=== PATIENT | male | born 1945 | race Caucasian/White ===

== ENCOUNTER 2025-06-17 20:29 | Inpatient (IN) | payer OTHER, SELFPAY ==
[2025-06-17 16:05] VITALS: BP 96/65
[2025-06-17 16:40] LABS: Hematocrit 40.2 % (39.0-52.0); Hemoglobin 13.5 g/dL (13.0-18.0); Mean Corp Hgb Conc. 33.6 g/dL (33.0-37.0); Mean Corpuscular Volume 91.6 fL (80.0-94.0); Nucleated Red Blood Cells % 0 % (-); Platelet Count 445 10^3/uL (130-400); Red Cell Dist. Width 13.1 % (11.5-14.5)
--- NOTE | 2025-06-17 16:51 | ED.GENMED ---
History of Present Illness
General
Chief Complaint: Breathing Problem
Source: patient
Exam Limitations: none
Time Seen by Provider: 06/17/25 16:51
Nursing documentation reviewed up to this point in time: agreed with
History of Present Illness
History of Present Illness:
80-year-old male with history of no significant past medical history presents for left-sided chest pain. He went to his PCP today for this chest pain which he says started 1 week ago as he was carrying during a golf game. He then played golf 4
days ago and felt fine and then played softball 2 days ago and had a brief episode of dizziness and balance issues that passed and has had none since. He states his left side hurts when he lays on that side and makes him cough. He does not cough
when sitting upright or laying flat or on the other side. He denies fever or chills. Denies N/V/D/C. Denies feeling short of breath but states it hurts to take a deep breath
Past History
Past History
ED Past Medical History: None
ED Past Surgical History: Orthopedic
Review of Systems
Review of Systems
Allergies reviewed?: Yes
Constitutional: Denies fever or chills
Respiratory: Reports cough; Denies trouble breathing
Cardiac: Reports chest pain
ABD/GI: Denies abdominal pain, nausea or vomiting
Musculoskeletal: Reports no symptoms
Skin: Reports no symptoms
Neurological: Reports no symptoms
Phy Exam
Physical Exam
Physical Exam:
GENERAL: No acute distress. A&Ox3.
CONSTITUTIONAL: Afebrile.
EYES: clear, conjunctivae normal
ENMT: moist mucus membranes, Pharynx nl
RESPIRATORY: Regular respirations, nonlabored, lungs clear.
CARDIOVASCULAR: Regular rate and rhythm, no murmurs, no rubs.
GI: Soft, nontender, normal BS
MUSCULOSKELETAL: Moves with ease. Well perfused.
SKIN: Warm, dry, pink
PSYCH: Normal mood and affect. Well kept, interactive and appropriate
NEUROLOGIC: Awake, alert and oriented. No focal neurological deficits
Scores
Heart Failure Risk
Heart Failure Risk Score: Not Applicable
Course
Orders/Labs/Results
Orders:
Orders
06/17/25 Breakfast
Regular
At Your Request: Full Participation
06/17/25 16:19
EKG [Electrocardiogram (*1)] Urgent
Reason for Study: Chest Pain
EKG- Treatment ONCE
06/17/25 16:30
CMP [Comprehensive Metabolic Panel] Urgent
Complete Blood Count/With Diff Urgent
NT-proBNP Urgent
Troponin I Urgent
06/17/25 17:47
CT Chest/abd/pel W Iv Cont Urgent
Comment:
Reason For Exam: left sided chest pain
06/17/25 19:34
Doxycycline [Vibramycin] 100 mg PO NOW STA
06/17/25 19:35
CefTRIAXone [Rocephin] 1,000 mg IV NOW STA
06/17/25 19:42
Sterile Water [Sterile Water For Injection] 10 ml .ROUTE .STK-MED ONE
06/17/25 19:59
Admit/Transfer Patient As Directed
Co-Sign Provider:
Level of Care: Inpatient admission
Assign to:: Medical/Surgical
Physician / Group: Htay
Diagnosis: Pleural Effusion
Reason for Hospitalization: IV abx, thoracentesis
Expected length of stay greater than two midnights?: Yes
ELOS- Estimated Length of Stay in days: 3
I certify the patient meets the requirements for IP care: Yes
06/17/25 20:01
Code Status As Directed
Resuscitation Status: Full Code
PRN Pain Medication Management As Directed
May give lesser potent ordered pain med per pt: Yes
preference::
Protocol:: Medication orders for pain may be administered in a
manner that supports deferring to patient preference
when the pt is:
- Requesting an ordered lesser potent pain medication.
Least to most potent pain medications are defined
as: acetaminophen < NSAID < tramadol < opioids
(morphine, oxycodone, hydromorphone).
- Requesting a lesser dose of the same medication IF
ORDERED.
- Requesting a less intrusive route of administration
if both routes are prescribed by the provider (PO <
IV).
06/17/25 20:41
Acetaminophen [Tylenol] 650 mg PO Q4HPRN PRN
Ketorolac [Toradol] 10 mg IV Q6HPRN PRN
06/17/25 20:41
IR[facility] CONSULT Routine
Consulting Provider: Kulwinder Champagne
Was physician already notified: Yes
Procedure being ordered, including laterality if applicable: Left Thoracentesis
Acknowledgement that appropriate orders are entered: Yes
PULMONARY CONSULT Routine
Consulting Provider: Anusha Barakat
Was physician already notified: Yes
Acid Fast Culture & Smear Routine
TERESA Source: Pleural Fluid
Specimen Description:
Comment: post procedure
Body Fluid Amylase Routine
Fluid Source: Pleural
Body Fluid Cell Count Routine
What is the Body Fluid: pleural fluid
Comment: post procedure
Body Fluid Glucose Routine
Fluid Source: Pleural
Body Fluid LDH Routine
Fluid Source: Pleural
Body Fluid Protein Routine
Fluid Source: Pleural
Body Fluid Triglycerides Routine
Fluid Source: Pleural
Body Fluid pH Routine
Fluid Source: Pleural
Fluid Culture with Gram Stain Routine
TERESA Source: Pleural Fluid
Specimen Description:
Comment: post procedure
Activity As Directed
Activity Level: Out of Bed-Early Mobility
With Assistance
I&O [Intake/ Output] As Directed
Frequency: q12h
Vital Signs As Directed
Frequency: Per unit guidelines
Weight As Directed
Frequency: Daily
IRAD Cytology Routine
Source: Pleural Fluid, Left
Clinical Impression: Left pleural effusion
Rx Incentive Spirometry [RESP] Routine
Frequency: q1h while awake
DX Deep Vein Thrombosis Video Routine
06/18/25 06:53
Basic Metabolic Panel IN AM
Complete Blood Count/No Diff IN AM
LDH IN AM
Total Protein IN AM
06/18/25 08:00
Doxycycline [Vibramycin] 100 mg PO Q12
06/18/25 18:00
Enoxaparin Sodium [Lovenox] 40 mg SC QPM
06/18/25 20:00
CefTRIAXone [Rocephin] 1,000 mg IV Q24H
Abnormal Lab Results
06/17/25
16:30
WBC 12.5 H 10^3/uL
(4.8-10.8)
RBC 4.39 L 10^6/uL
(4.70-6.10)
Plt Count 445 H 10^3/uL
(130-400)
Abs Immat Gran (auto) 0.1 H 10^3/uL
(0-0.05)
Absolute Neuts (auto) 9.7 H 10^3/uL
(1.4-6.5)
Absolute Monos (auto) 1.2 H 10^3/uL
(0.1-0.6)
Neutrophils % 77.1 H %
(42.2-75.2)
Lymphocytes % 11.4 L %
(20.5-51.1)
Monocytes % 9.5 H %
(1.7-9.3)
BUN 23 H mg/dl
(9-20)
Glucose 123 H mg/dl
(70-99)
Calcium 10.3 H mg/dl
(8.4-10.2)
06/17/25 16:30
06/17/25 16:30
Vital Signs
Initial and Last Documented VS:
Initial Vital Signs
Temp Pulse Resp BP Pulse Ox
98.4 F 86 20 96/65 94
06/17/25 16:05 06/17/25 16:05 06/17/25 16:05 06/17/25 16:05 06/17/25 16:05
Last Documented Vital Signs
Temp Pulse Resp BP Pulse Ox
99.6 F 89 20 126/70 92
06/19/25 07:50 06/19/25 07:50 06/19/25 07:50 06/19/25 07:50 06/19/25 07:50
Motion Picture Camera Operator consulted with Physician
Motion Picture Camera Operator consulted with physician?: Yes
Name of Physician Consulted: Luis A
MDM/Problems Addressed
Differential Diagnosis Includes:
Pneumonia, pleural effusion, empyema
MDM/Problems Addressed:
80-year-old male with history of no significant past medical history presents for left-sided chest pain. He went to his PCP today for this chest pain which he says started 1 week ago as he was carrying during a golf game. He then played golf 4
days ago and felt fine and then played softball 2 days ago and had a brief episode of dizziness and balance issues that passed and has had none since. He states his left side hurts when he lays on that side and makes him cough. He does not cough
when sitting upright or laying flat or on the other side. He denies fever or chills. Denies N/V/D/C. Denies feeling short of breath but states it hurts to take a deep breath
CBC: WBC 12.5
No hypoxemia
CMP with no clinically significant abnormality
Troponin WNL
BNP WNL
CT abd/pelvis/chest with IV contrast radiology report read: IMPRESSION:
1. Small to moderate partially loculated left pleural effusion with associated confluent pleural-based left lower lobe consolidation, likely rounded atelectasis with or without a superimposed component of pneumonia.
2. Small 5 mm right lower lobe pulmonary nodule, likely benign. If the patient is considered high risk, an optional follow-up noncontrast CT chest can be obtained in 12 months. The [facility] Pulmonary Nodule Advisory Board will be notified.
3. Probable right-sided hydrocele, partially visualized.
7:[address] scan and case reviewed and discussed with Dr. Gunn who examined pt
Plan: Admit: Loculated Pleural Effusion r/o empyema. IV antibiotics, pumonary eval
Hospitalist notified of admission
*Pulse Oximetry
SaO2: 94
Oxygen Mode of Delivery: Room air
Patient hypoxic: no
*Critical Care Note
Total Time (30-74mins, 75-104mins- exclusive of procedures): Not Applicable
ED Attending Note
-
Portions of this chart may have been created with voice recognition software.� Occasional wrong word or��sound alike� substitutions may have occurred due to the inherent limitations of voice recognition software.
Discharge Plan
Departure
Patient Disposition: Admit
Date of Disposition: 06/17/25
Time of Disposition: 19:36
Admit to: Med/Surg
Presentation/result/management discussed w/ accepting MD/DO: Hospitalist
Patient with high blood pressure during this ER visit?: No
Condition: Fair
Discharge Problem:
Loculated pleural effusion
Interventions
Interventions:
*Risk Screen - Suicide Last Done: 06/17/25 16:05
*General Assessment Last Done: 06/17/25 20:37
*Neglect/Abuse Screening Last Done: 06/17/25 16:05
*ED COVID-19 Vaccine History Last Done: 06/17/25 16:05
*ED Influenza Vaccine History Last Done: 06/17/25 16:05
[facility] Fall Risk Assessment Tool Last Done: 06/17/25 17:41
*Nursing Disposition Last Done: 06/17/25 20:37
ED- Cardiac Assessment Last Done: 06/17/25 17:42
ED- Pulmonary Assessment Last Done: 06/17/25 17:42
Discharge Date and Time
Discharge Date/Time: 06/17/25 20:38
[2025-06-17 16:54] LABS: ALT (SGPT) 19 U/L (0-50); AST (SGOT) 22 U/L (17-59); Albumin 3.6 g/dl (3.5-5.0); Alkaline Phosphatase 81 U/L (38-126); Blood Urea Nitrogen 23 mg/dl (9-20); Calcium 10.3 mg/dl (8.4-10.2); Carbon Dioxide 28 mmol/L (22-30); Chloride 106 mmol/L (98-107); Glucose 123 mg/dl (70-99); Potassium 4.6 mmol/L (3.5-5.1); Sodium 136 mmol/L (135-145); Total Protein 7.0 g/dl (6.3-8.2); eGFR > 60.00
[2025-06-17 17:13] LABS: Troponin I < 0.012 ng/ml
[2025-06-17 17:19] VITALS: BMI 22.3
[2025-06-17 17:21] VITALS: BP 151/74
[2025-06-17 18:00] VITALS: BP 138/71
--- NOTE | 2025-06-17 19:39 | W.PN.UPDATE ---
Update Note
Progress Note Update
This note serves as an addendum to the H&P by general assignment reporter Germán DIAZ
HPI�
80M No significant PMHX, not on any Meds pw difficulty breathing and CP when he lays down.
- evaluated by PCP and had CXR done which showed moderate left pleural effusion.
- he was told to come to ED for CT chest/abdomen
- Low grade T 99.9 at home
- Elevated WCC
Denied cough and sputum production
No recent travel
Denied known recent tick bite
No recent Covid or Flu
Relevant VS
Temp Pulse Resp BP Pulse Ox
98.4 F 80 23 138/71 95
06/17/25 16:05 06/17/25 19:30 06/17/25 19:30 06/17/25 18:00 06/17/25 19:30
PE
Gen: NAD, not toxic
HEENT: anicteric
Neck: supple
Lungs:Decreased AE at Lt base
Cor:RRR S1 S2
Abdomen:�Benign abdomen
SKIVER MACHINE OPERATOR: NFND
MS:no edema
Relevant Data�
06/17/25
16:30
WBC 12.5 H
Hgb 13.5
Plt Count 445 H
Creatinine 0.8
eGFR > 60.00
Glucose 123 H
Calcium 10.3 H
Troponin I < 0.012
[id number] Pept 441
EKG report
NORMAL SINUS RHYTHM
RIGHT BUNDLE BRANCH BLOCK
T WAVE ABNORMALITY, CONSIDER INFERIOR ISCHEMIA
ABNORMAL ECG
NO PREVIOUS ECGS AVAILABLE
Confirmed by ARMANDO YBARRA MD ([id number]) on 06/17/2025 5:41:55 PM
06/17/25 CT Chest/abd/pel W Iv Cont: Indication: Chest pain.
1. Small to moderate partially loculated left pleural effusion
Associated confluent pleural-based left lower lobe consolidation, likely rounded atelectasis with or without a superimposed component of pneumonia.
2. Small 5 mm right lower lobe pulmonary nodule, likely benign.
If the patient is considered high risk, an optional follow-up noncontrast CT chest can be obtained in 12 months.
The [facility] Pulmonary Nodule Advisory Board will be notified.
3. Probable right-sided hydrocele, partially visualized.
NO prior hospitalist admission:
ASSESSMENT & PLAN
Probably symptomatic small /moderate partially loculated L pleural effusion DX: parapneumonic vs malignant
Associated confluent pleural-based left lower lobe consolidation DDX: rounded atelectasis with or without a superimposed component of pneumonia.
Pleuritic quality CP on Lt side - pain with deep breathing
Similar pleuritic vs muscle strain likje pain on R lower chest 2 months ago
No recent travel
Denied known recent tick bite
No recent Covid or Flu
- Empiric IV CFTZ and PO Doxycycline
- IV Toradol PRN for pleurisy
- Incentive spirometry
- IR consult for Dxtic +/_ Rxtic L thoracentesis ( appropriate labs are ordered)
- Pul consult
DVT Px: LMWH
Full code
IP MS
[2025-06-17] MEDS: VIBRAMYCIN 100 MG PO (19:50)
[2025-06-17] MEDS: ROCEPHIN 1000 MG IV (19:50)
[2025-06-17 19:51] VITALS: BP 158/80
--- NOTE | 2025-06-17 20:06 | HPS.HSE ---
Family Physician
-
Family Physician: KAREN MINER PA-C
Chief Complaint
-
Left sided chest pain
History of Present Illness
Patient is a 80 y/o male without significant past medical history who presents with left sided chest pain. Patient described the pain as a dull ache from the lower ribs down his left side. He reports pain is worsen lying down. He reports lying
down triggers increased cough. He notes sharp pain with cough and deep inspiration. He denies shortness of breath. He reports low grade temp of 99.9F this morning.
Medical History
Past Medical History
Past Medical History: Reports Other
Additional Past Medical History:
Peripheral Neuropathy
Past Surgical History: Reports Other
Additional Past Surgical History:
Left Great Toe Amputation
Left Thumb and Right Ring Finger Tendon Repair
Tonsillectomy
Cataracts
Social History
Tobacco: Non-smoker
Alcohol: None
Family History
Family History: Not pertinent
Allergies / Home Medications
Allergies reflects when Allergies were last updated in [employer].
Home Medications with original date entered in [employer]
Allergy/Medication List:
Allergies
Allergy/AdvReac Type Severity Reaction Status Date / Time
No Known Allergies Allergy Verified 06/17/25 16:12
Home Medications
No Meds [No Current Medications] 06/17/25
Review of Systems
-
History Source: Patient
A 12 point ROS was completed and negative except as noted: Yes
Constitutional: Denies Fever or Chills
Respiratory: Reports Cough and Trouble Breathing (Related to inability to take a deep breath)
Cardiac: Denies Palpitations
Abdomen/GI: Denies Abdominal Pain, Nausea, Vomiting, Diarrhea or Constipated
Physical Exam
Vital Signs
Vital Signs
Temp Pulse Resp BP Pulse Ox
98.4 F 80 23 138/71 95
12/05/25 16:05 06/17/25 19:30 06/17/25 19:30 06/17/25 18:00 06/17/25 19:30
Physical Exam
General: Comfortable and Conversant
HEENT: Anicteric and Moist mucous membranes
Respiratory: Non Labored Respirations and Decreased Breath Sounds (Left base); No Rales
Cardiac: S1/S2 and Regular Rhythm; No Tachycardia
GI: Soft and Non Distended
Rectal: Deferred by Provider
Musculoskeletal: No Clubbing, No Cyanosis and No Edema
Skin: Warm and Dry
Neuro: Awake, Alert, Oriented and Nonfocal/grossly intact
Psych: Calm
Laboratory Results
-
06/17/25 16:30
06/17/25 16:30
Laboratory Results
Total Bilirubin 0.5 mg/dl (0.2-1.3) 06/17/25 16:30
AST 22 U/L (17-59) 06/17/25 16:30
ALT 19 U/L (0-50) 06/17/25 16:30
Alkaline Phosphatase 81 U/L (38-126) 06/17/25 16:30
Troponin I < 0.012 ng/ml 06/17/25 16:[address]:
Small to moderate partially loculated left pleural effusion with associated confluent pleural-based left lower lobe consolidation, likely rounded atelectasis with or without a superimposed component of pneumonia.
Data Reviewed
-
CT Scan: Report Reviewed by me
Lab Data: Labs Reviewed by me
Impression/Plan
-
Pleurisy secondary to Left Pleural Effusion, suspect parapneumonic effusion (more likely) vs empyema (less likely)
-Consult Pulmonary
-Consult IR for thoracentesis
-Continue ceftriaxone and doxycycline
-Encourage use of incentive spirometer
DVT proph: Lovenox
Code Status: Full Code
[2025-06-17 20:51] VITALS: BP 179/81
[2025-06-17 20:52] VITALS: BMI 22.0
--- NOTE | 2025-06-17 21:00 | PTCARENOTE ---
pt arrived to floor from ED via stretcher and ambulated to bed with a steady gait. Pt aox3, oriented to room, call fernandez within reach. Food provided. Slight headache and intermittent pain in L rib cage with coughing, no complaints otherwise. Will
review chart and follow plan of care.
[2025-06-17] MEDS: TYLENOL 650 MG PO (21:30)
[2025-06-17 23:10] VITALS: BP 103/53
[2025-06-18 06:02] VITALS: BMI 21.7
[2025-06-18 08:16] VITALS: BP 135/78
[2025-06-18] MEDS: VIBRAMYCIN 100 MG PO ×2 (08:49→19:53)
[2025-06-18 09:53] LABS: Hematocrit 41.9 % (39.0-52.0); Hemoglobin 14.0 g/dL (13.0-18.0); Mean Corp Hgb Conc. 33.4 g/dL (33.0-37.0); Mean Corpuscular Volume 90.3 fL (80.0-94.0); Platelet Count 425 10^3/uL (130-400); Red Cell Dist. Width 13.2 % (11.5-14.5)
[2025-06-18 10:37] LABS: Blood Urea Nitrogen 20 mg/dl (9-20); Calcium 10.0 mg/dl (8.4-10.2); Carbon Dioxide 26 mmol/L (22-30); Chloride 105 mmol/L (98-107); Estimated Creatinine Clearance 85 ml/min; Glucose 103 mg/dl (70-99); LDH 215 U/L (120-246); Potassium 4.9 mmol/L (3.5-5.1); Sodium 137 mmol/L (135-145); Total Protein 6.8 g/dl (6.3-8.2); eGFR > 60.00
--- NOTE | 2025-06-18 10:52 | W.PN.HOSP.TC ---
Today's Communication/Plan
-
Pulm eval
Assessment / Plan
Assessment / Plan
Physical exam:
General: Well Developed, Well Nourished and No Apparent Distress
HEENT: Normocephalic, Atraumatic and Moist Mucous Membranes
Respiratory: Decreased breath sounds in left base; Negative Wheezes, Rales or Rhonchi
Cardiac: Regular Rhythm and S1/S2
GI: Soft, Nontender and Nondistended
Musculoskeletal: No Clubbing, No Cyanosis and No Edema
Neuro: Awake, Alert and Oriented, no neurological deficit
Psych: Calm
A/P:
Pleurisy probably secondary to Left Pleural Effusion
-Consult Pulmonary
-Consult IR for thoracentesis--> if weekend needs to be emergent otherwise on Friday or outpatient but waiting for pulm input.
-Continue ceftriaxone and doxycycline
-Encourage use of incentive spirometer
DVT proph: Lovenox
Code Status: Full Code
Total time spent on today's encounter was 35 minutes which included time spent in counseling the patient/family regarding diagnosis and treatment plan as listed above, goals of care, and symptom management. Case was discussed with nursing staff,
specialists, and care coordinators/case management. All labs and imaging personally reviewed by me. Remainder the time spent in detailed review of previous records, lab data, imaging, and other medical provider documentation.
Anticipated Discharge: 24 - 48 hours
Subjective/Interval History
-
Date of Service: June 18, 2025
Patient c/o pleuritic chest discomfort, afebrile.
Objective Data
-
Labs:
Laboratory Results
06/18/25
06:53
WBC 12.1 H
Hgb 14.0
Hct 41.9
Plt Count 425 H
Sodium 137
Potassium 4.9
Chloride 105
Carbon Dioxide 26
BUN 20
Creatinine 0.8
Glucose 103 H
Calcium 10.0
Vital Signs:
Vital Signs
Temp Pulse Resp BP Pulse Ox
98.3 F 77 18 135/78 98
06/18/25 08:16 06/18/25 08:16 06/18/25 08:16 06/18/25 08:16 06/18/25 08:16
--- NOTE | 2025-06-18 12:26 | CON.PUL ---
Consultation
Consultation Request
Date/Time Consultation Requested: 06/18/25
Date/Time Consultation Performed: 06/18/25
Performing Provider: Yuval
Reason for Consultation: Effusion
Medical History
-
History of Present Illness:
Patient is a 80-year-old male with no significant past medical history presenting with left sided chest pain. Patient described the pain as a dull ache from the lower ribs down his left side. He reports pain is worsened lying down. He reports
lying down triggers increases cough. He notes sharp pain with cough and deep inspiration. He denies shortness of breath. He reports low grade temp of 99.9F this morning.
Several weeks prior, he noted similar complaints on the right-hand side.
Denies any prior known history of lung disease, lifelong non-smoker. Denies family history of lung disease.
Underwent CT demonstrating loculated pleural effusion on the left, he is started on IV antibiotics for presumed pneumonia.
Past Medical History
Past Medical History: Other (see list below)
Social History
Tobacco: Non-smoker
Alcohol: None
Drug: None
Allergies / Home Medications
Allergies
Allergy/AdvReac Type Severity Reaction Status Date / Time
No Known Allergies Allergy Verified 06/17/25 16:12
Home Medications
�Medication �Instructions �Recorded �Confirmed �Last Taken �Type
No Meds [No Current Medications] 06/17/25 06/17/25 Unknown History
Review of Systems
-
History Source: Patient
All other systems: Negative unless noted
Vitals / Labs / Diagnostic Testing
Vital Signs
Temp Pulse Resp BP Pulse Ox
98.3 F 77 18 135/78 98
06/18/25 08:16 06/18/25 08:16 06/18/25 08:16 06/18/25 08:16 06/18/25 08:16
Lab Data
06/18/25 06:53
06/18/25 06:53
Diagnostic Testing:
Physical Exam
-
HEENT: Normocephalic, Anicteric and Moist Mucous Membranes
Cardiovascular: S1/S2 and Regular Rhythm
Respiratory: Clear and Non-Labored Respirations
GI: Soft, Non Distended and Non Tender
Neurology: Awake, Alert, Oriented and No Motor Deficits
Skin: Warm, Dry and Good Color
General: Comfortable and Other (NAD)
Assessment
-
Patient is a 80-year-old male with no significant past medical history presenting with left sided chest pain. Patient described the pain as a dull ache from the lower ribs down his left side. He reports pain is worsened lying down. He reports
lying down triggers increases cough. He notes sharp pain with cough and deep inspiration. He denies shortness of breath. He reports low grade temp of 99.9F this morning.
Several weeks prior, he noted similar complaints on the right-hand side. Denies any prior known history of lung disease, lifelong non-smoker. Denies family history of lung disease. Underwent CT demonstrating loculated pleural effusion on the left,
he is started on IV antibiotics for presumed pneumonia. We are consulted for evaluation.
Left-sided loculated effusion on CT
Chronic cough
Left side pleurisy
Low-grade temp
Leukocytosis, mild
Conditions present prior to admission
No past history
Plan
No oxygen was needed on admission, currently saturating >90% on RA
Denies prior known history of lung disease, lifelong non-smoker
CXR/CT obtained indicating loculated left-sided pleural effusion, he had right sided pain several weeks prior
The fluid amount may be too small to sample via thoracentesis
Will obtain a chest ultrasound to confirm
IR has been consulted, but unsure if they are able to pursue diagnostic tap
No prior imaging for review
He is considered overall low risk for malignancy
He has very vague complaints that are suggestive of infection
He did have a mild leukocytosis, low-grade temperature but no true fever
I would agree with empiric antibiotics as this is most likely
I will check strep antigen, Legionella antigen, MRSA, sputum culture
Unclear if effusion is related to heart failure, no prior cardiac testing available for review
Will obtain new echo for results
If workup thus far has been negative, can assess for discharge planning with short-term outpatient follow-up
He has been asking if he can go home
He understands the plan if the workup thus far is negative
Can transition to p.o. course of antibiotics with plan to repeat CT imaging as an outpatient
Will arrange outpatient pulmonary evaluation in our office for PFTs and 6MWT
Reviewed with patient
Can assess for discharge planning if workup negative
Diagnostic Data
Chest X-Ray:
CT Scan: CHEST -1. Small to moderate partially loculated left pleural effusion with associated confluent pleural-based left lower lobe consolidation, likely rounded atelectasis with or without a superimposed component of pneumonia.
2. Small 5 mm right lower lobe pulmonary nodule, likely benign. If the patient is considered high risk, an optional follow-up noncontrast CT chest can be obtained in 12 months. The [facility] Pulmonary Nodule Advisory Board will be notified.
3. Probable right-sided hydrocele, partially visualized.
Echo:
PFT's:
Reports and relevant images were personally reviewed.
Total time spent on this consultation __55__ minutes which includes review of history, physical exam, medications, laboratory data, personal review of imaging, extensive review of outpatient records, discussion with care team and respiratory therapy.
[2025-06-18] MEDS: TORADOL 10 MG IV (15:13)
[2025-06-18 15:43] VITALS: BP 137/70
[2025-06-18] MEDS: LOVENOX 40 MG SC (16:36)
--- NOTE | 2025-06-18 16:54 | CM ---
Alert awake oriented patient who lives with his Lashell who lives in a 2 story home with 0 step to enter and 13 steps to bed and bathroom. He is independent in driving and in all activities of daily living.He was offered VN he declined
need.Advanced directive pkg given.
No VN hx / No SNF history
Pharmacy Iv[facility] Infante
PCP DR Shireen Amezquita
PLAN Home Declined VN
--- NOTE | 2025-06-18 17:30 | PTCARENOTE ---
PT became very restless at end of my shift. he kept getting up going out to nurses station, wanting to go home. I reasurred him that the doctors want him to stay to get treatment. Urine for legionella and strep ordered and sent, MRSA nasal swab
sent, sputum cup at bed side and instructed on what to do.
[2025-06-18 19:35] VITALS: BP 164/76
[2025-06-18] MEDS: TYLENOL 650 MG PO (19:50)
[2025-06-18] MEDS: STERILE WATER FOR INJECTION 10 ML IV (19:51)
[2025-06-18] MEDS: ROCEPHIN 1000 MG IV (19:51)
[2025-06-18 23:43] VITALS: BP 150/70
[2025-06-19 00:03] LABS: Urine Character Cloudy (Clear)
[2025-06-19 00:45] LABS: Urine Squamous Cell 16-20 /LPF (Few)
[2025-06-19 00:48] LABS: Urine Red Blood Cell 26-30 /HPF (0-2); Urine White Cell 30-40 /HPF (0-5)
[2025-06-19 06:55] VITALS: BMI 21.7
[2025-06-19 07:50] VITALS: BP 126/70
[2025-06-19 08:08] LABS: Hematocrit 40.5 % (39.0-52.0); Hemoglobin 13.3 g/dL (13.0-18.0); Mean Corp Hgb Conc. 32.8 g/dL (33.0-37.0); Mean Corpuscular Volume 90.6 fL (80.0-94.0); Nucleated Red Blood Cells % 0 % (-); Platelet Count 465 10^3/uL (130-400); Red Cell Dist. Width 13.3 % (11.5-14.5)
[2025-06-19 08:28] LABS: Blood Urea Nitrogen 26 mg/dl (9-20); Calcium 10.5 mg/dl (8.4-10.2); Carbon Dioxide 26 mmol/L (22-30); Chloride 103 mmol/L (98-107); Estimated Creatinine Clearance 68 ml/min; Glucose 133 mg/dl (70-99); Potassium 4.8 mmol/L (3.5-5.1); Sodium 135 mmol/L (135-145); eGFR > 60.00
[2025-06-19] MEDS: TORADOL 10 MG IV ×2 (08:35→15:26)
[2025-06-19] MEDS: VIBRAMYCIN 100 MG PO ×2 (08:36→20:31)
--- NOTE | 2025-06-19 08:41 | W.PN.HOSP.TC ---
Today's Communication/Plan
-
Blood cultures. Chest ultrasound. Thoracentesis. Antibiotic. Pulmonary reeval
Assessment / Plan
Assessment / Plan
Physical exam:
General: Acutely ill. Nontoxic appearance
HEENT: Normocephalic, Atraumatic and Moist Mucous Membranes
Respiratory: Decreased breath sounds in left base; Negative Wheezes, Rales or Rhonchi
Cardiac: Regular Rhythm and S1/S2
GI: Soft, Nontender and Nondistended
Musculoskeletal: No Clubbing, No Cyanosis and No Edema
Neuro: Awake, Alert and Oriented, no neurological deficit
Psych: Calm
A/P:
Left pleural effusion:
Chest ultrasound today
Continue antibiotics
Plan for thoracentesis tomorrow if enough fluid
Plan for echocardiogram as well
Pulmonary consult appreciated
Pneumonia:
Continue Rocephin and Doxy
Strep and Legionella negative
Sputum culture pending
Leukocytosis:
Worsening today the clinical status remains stable
Follow-up trend of WBC
Obtain blood cultures today as well although already on antibiotic
Abnormal UA:
On antibiotic
Urine culture pending
DVT proph: Lovenox
Code Status: Full Code
Total time spent on today's encounter was 52 minutes which included time spent in counseling the patient/family regarding diagnosis and treatment plan as listed above, goals of care, and symptom management. Case was discussed with nursing staff,
specialists, and care coordinators/case management. All labs and imaging personally reviewed by me. Remainder the time spent in detailed review of previous records, lab data, imaging, and other medical provider documentation.
Anticipated Discharge: 24 - 48 hours
Subjective/Interval History
-
Date of Service: June 19, 2025
Patient continues to have pleuritic chest discomfort. No worsening shortness of breath. Afebrile
Objective Data
-
Labs:
Laboratory Results
06/19/25
07:50
WBC 21.7 H
Hgb 13.3
Hct 40.5
Plt Count 465 H
Sodium 135
Potassium 4.8
Chloride 103
Carbon Dioxide 26
BUN 26 H
Creatinine 1.0
Glucose 133 H
Calcium 10.5 H
Vital Signs:
Vital Signs
Temp Pulse Resp BP Pulse Ox
99.6 F 89 20 126/70 92
06/19/25 07:50 06/19/25 07:50 06/19/25 07:50 06/19/25 07:50 06/19/25 07:50
I&O
06/18/25 06/19/25 06/20/25
06:59 06:59 06:59
Intake Total 970 / 970
Balance 970 / 970
--- NOTE | 2025-06-19 11:48 | W.PN.PUL3 ---
Today's Communication / Plan
-
Feeling more lethargic today, WBC rising
Sputum culture still pending, urinalysis suggesting also UTI, agree with addition of blood cultures
Continue IV antibiotics
Chest ultrasound suggesting effusion is too small to attempt thoracentesis, would cancel IR consult
Await final culture results--if negative, may consider obtaining CT abdomen pelvis for source
Assessment
-
Patient is a 80-year-old male with no significant past medical history presenting with left sided chest pain. Patient described the pain as a dull ache from the lower ribs down his left side. He reports pain is worsened lying down. He reports
lying down triggers increases cough. He notes sharp pain with cough and deep inspiration. He denies shortness of breath. He reports low grade temp of 99.9F this morning.
Several weeks prior, he noted similar complaints on the right-hand side. Denies any prior known history of lung disease, lifelong non-smoker. Denies family history of lung disease. Underwent CT demonstrating loculated pleural effusion on the left,
he is started on IV antibiotics for presumed pneumonia. We are consulted for evaluation.
Left-sided loculated effusion on CT
Chronic cough
Left side pleurisy
Low-grade temp
Leukocytosis, rising
Possible UTI, UA with 2+ blood/30-40wbc,many bacteria
Conditions present prior to admission
No past history
Plan
No oxygen was needed on admission, currently saturating >90% on RA
Denies prior known history of lung disease, lifelong non-smoker
CXR/CT obtained indicating loculated left-sided pleural effusion, he had right sided pain several weeks prior
The fluid amount may be too small to sample via thoracentesis
Will obtain a chest ultrasound to confirm--this appears too small to tap
IR has been consulted, would cancel
No prior imaging for review
He is considered overall low risk for malignancy
He has very vague complaints that are suggestive of infection
He did have a mild leukocytosis, low-grade temperature but no true fever--WBC rising today
I would agree with empiric antibiotics as this is most likely
I will check strep antigen, Legionella antigen, MRSA, sputum culture--pending
UA now also suggesting UTI
Agree with new blood cultures as well
Unclear if effusion is related to heart failure, no prior cardiac testing available for review
Will obtain new echo for results
If workup thus far has been negative, can assess for discharge planning with short-term outpatient follow-up
He has been asking if he can go home
He understands the plan if the workup thus far is negative
Can transition to p.o. course of antibiotics with plan to repeat CT imaging as an outpatient
Will arrange outpatient pulmonary evaluation in our office for PFTs and 6MWT
Reviewed with patient
Updated patient and at bedside
Diagnostic Data
Chest X-Ray:
CT Scan: CHEST -1. Small to moderate partially loculated left pleural effusion with associated confluent pleural-based left lower lobe consolidation, likely rounded atelectasis with or without a superimposed component of pneumonia.
2. Small 5 mm right lower lobe pulmonary nodule, likely benign. If the patient is considered high risk, an optional follow-up noncontrast CT chest can be obtained in 12 months. The [facility] Pulmonary Nodule Advisory Board will be notified.
3. Probable right-sided hydrocele, partially visualized.
Echo:
PFT's:
Reports and relevant images were personally reviewed.
Total time spent on this consultation __50__ minutes which includes review of history, physical exam, medications, laboratory data, personal review of imaging, extensive review of outpatient records, discussion with care team and respiratory therapy.
Subjective Data
-
Date of Service:
Date of Service: June 19, 2025
Chief Complaint: Pulmonary Follow Up
Subjective:
Feels worse today than yesterday
Remained stable on room air
Objective Data
Data Reviewed
Vital Signs / I&O / Oxygen:
Vital Signs
Temp Pulse Resp BP Pulse Ox
99.6 F 89 20 126/70 92
06/19/25 07:50 06/19/25 07:50 06/19/25 07:50 06/19/25 07:50 06/19/25 07:50
Intake and Output
06/18/25 06/19/25 06/20/25
06:59 06:59 06:59
Intake Total 970 / 970
Balance 970 / 970
SaO2 92
Physical Exam
General: Comfortable and Other (NAD)
HEENT: Normocephalic, Anicteric and Moist Mucous Membranes
Cardiovascular: S1-S2 and Regular Rhythm
Respiratory: Clear and Non-Labored Respirations
GI: Soft, Non Distended and Non Tender
Neurology: Awake, Alert, Oriented and No Motor Deficits
Skin: Warm, Dry and Good Color
Labs/Micro/Reports
Lab Data
06/19/25 07:50
06/19/25 07:50
Microbiology
06/18/25 20:22 Urine Legionella Urinary Antigen - Final
Negative for Legionella pneumophila Serogroup 1 antigen.
A negative result does not rule out the possiblity of
Legionella infection due to other serogroups or species of
Legionella. Clinical correlation is recommended.
06/18/25 20:22 Urine Streptococcus pneumoniae Antigen (M - Final
Negative for Streptococcus pneumoniae antigen.
A negative result does not exclude infection with
Streptococcus pneumoniae. Clinical correlation is
recommended.
06/18/25 20:22 Sputum Gram Stain - Preliminary
[2025-06-19 16:32] VITALS: BP 132/65
[2025-06-19] MEDS: LOVENOX 40 MG SC (17:23)
[2025-06-19] MEDS: TYLENOL 650 MG PO (17:24)
[2025-06-19] MEDS: ROCEPHIN 1000 MG IV (20:31)
[2025-06-19] MEDS: STERILE WATER FOR INJECTION 10 ML IV (20:33)
[2025-06-19 23:00] VITALS: BP 137/66
[2025-06-20 05:12] VITALS: BMI 21.8
[2025-06-20 05:52] LABS: Hematocrit 39.4 % (39.0-52.0); Hemoglobin 13.3 g/dL (13.0-18.0); Mean Corp Hgb Conc. 33.8 g/dL (33.0-37.0); Mean Corpuscular Volume 90.8 fL (80.0-94.0); Nucleated Red Blood Cells % 0 % (-); Platelet Count 422 10^3/uL (130-400); Red Cell Dist. Width 13.0 % (11.5-14.5)
[2025-06-20 06:15] LABS: Blood Urea Nitrogen 31 mg/dl (9-20); Calcium 10.6 mg/dl (8.4-10.2); Carbon Dioxide 24 mmol/L (22-30); Chloride 105 mmol/L (98-107); Estimated Creatinine Clearance 76 ml/min; Glucose 126 mg/dl (70-99); Potassium 4.4 mmol/L (3.5-5.1); Sodium 135 mmol/L (135-145); eGFR > 60.00
[2025-06-20 07:28] VITALS: BP 116/75
[2025-06-20] MEDS: VIBRAMYCIN 100 MG PO (07:28)
--- NOTE | 2025-06-20 08:50 | W.PN.PUL.V3 ---
Today's Communication / Plan
-
Finite course of antibiotics.
Not enough fluid for thoracentesis..
Echocardiogram pending.
Stable for proposed discharge with outpatient pulmonary/radiographic follow-up
Outpatient pulmonary follow-up
Assessment
-
Patient is a 80-year-old male with no significant past medical history presenting with left sided chest pain. Patient described the pain as a dull ache from the lower ribs down his left side. He reports pain is worsened lying down. He reports
lying down triggers increases cough. He notes sharp pain with cough and deep inspiration. He denies shortness of breath. He reports low grade temp of 99.9F this morning.
Several weeks prior, he noted similar complaints on the right-hand side. Denies any prior known history of lung disease, lifelong non-smoker. Denies family history of lung disease. Underwent CT demonstrating loculated pleural effusion on the left,
he is started on IV antibiotics for presumed pneumonia. We are consulted for evaluation.
Left-sided loculated effusion on CT
Chronic cough
Left side pleurisy
Low-grade temp
Leukocytosis, rising
Possible UTI, UA with 2+ blood/30-40wbc,many bacteria
Conditions present prior to admission:
No past history
Plan
Respiratory status slowly improving-lifelong nonsmoker, and no previous lung disease
Supplemental oxygen as needed-currently on room air.
Incentive spirometry.
Loculated pleural [id number]-[id number]-bex enough fluid to tap.
Monitor pleural fluid and it increases in size or patient becomes symptomatic and clinical scenario might dictate thoracentesis
Check cultures.
Urine culture pending.
Blood cultures Pending
Urine culture 06/18/25-no growth.
Sputum culture-usual respiratory raul.
MRSA screen negative.
Urine Legionella and streptococcal pneumonia antigen negative
Empiric antibiotics-finite course-currently on ceftriaxone and doxycycline
Echocardiogram pending.
DVT prophylaxis-on Lovenox
Will arrange outpatient pulmonary evaluation in our office for PFTs and 6MWT
Diagnostic Data
Chest X-Ray:
CT Scan: CHEST -1. Small to moderate partially loculated left pleural effusion with associated confluent pleural-based left lower lobe consolidation, likely rounded atelectasis with or without a superimposed component of pneumonia.
2. Small 5 mm right lower lobe pulmonary nodule, likely benign. If the patient is considered high risk, an optional follow-up noncontrast CT chest can be obtained in 12 months. The [facility] Pulmonary Nodule Advisory Board will be notified.
3. Probable right-sided hydrocele, partially visualized.
.
Subjective Data
-
Date of Service:
Date of Service: June 20, 2025
Chief Complaint: Pulmonary Follow Up
Subjective:
Feels better, no complaints short of breath, chest pain, complains of having to urinate frequently. No abdominal pain
Review of Systems
General: Other ( per HPI)
Objective Data
Data Reviewed
Vital Signs / I&O:
Vital Signs
Temp Pulse Resp BP Pulse Ox
99.0 F 98 17 116/75 97
06/20/25 07:28 06/20/25 07:28 06/20/25 07:28 06/20/25 07:28 06/20/25 07:28
Intake and Output
06/19/25 06/20/25 06/21/25
06:59 06:59 06:59
Intake Total 970 / 970 480 / 480
Balance 970 / 970 480 / 480
SaO2: 97
Physical Exam
General: Respiratory Distress (n), Comfortable and Other (NAD)
HEENT: Normocephalic, Anicteric and Moist Mucous Membranes
Cardiovascular: Regular Rhythm
Respiratory: Clear, Wheeze (n), Crackles (n), Rhonchi (n), Non-Labored Respirations, Accessory Resp Muscle Use (n) and Stridor (n)
GI: Soft, Non Distended and Non Tender
Neurology: Awake, Alert and No Motor Deficits
Skin: Warm, Dry, Good Color, Cyanosis (n), Jaundice (n) and Rash (n)
Labs/Micro/Reports
Lab Data
06/20/25 05:29
06/20/25 05:29
Microbiology
06/18/25 20:22 Nose MRSA Screen - Final
No Methicillin Resistant Staphylococcus aureus isolated.
06/18/25 20:22 Urine Legionella Urinary Antigen - Final
Negative for Legionella pneumophila Serogroup 1 antigen.
A negative result does not rule out the possiblity of
Legionella infection due to other serogroups or species of
Legionella. Clinical correlation is recommended.
06/18/25 20:22 Urine Streptococcus pneumoniae Antigen (M - Final
Negative for Streptococcus pneumoniae antigen.
A negative result does not exclude infection with
Streptococcus pneumoniae. Clinical correlation is
recommended.
06/18/25 20:22 Sputum Gram Stain - Preliminary
--- NOTE | 2025-06-20 13:05 | W.PN.HOSP.TC ---
Today's Communication/Plan
-
Follow-up echo
Assessment / Plan
Assessment / Plan
Physical exam:
General: Acutely ill. Nontoxic appearance
HEENT: Normocephalic, Atraumatic and Moist Mucous Membranes
Respiratory: Decreased breath sounds in left base; Negative Wheezes, Rales or Rhonchi
Cardiac: Regular Rhythm and S1/S2
GI: Soft, Nontender and Nondistended
Musculoskeletal: No Clubbing, No Cyanosis and No Edema
Neuro: Awake, Alert and Oriented, no neurological deficit
Psych: Calm
Symptomatic left pleural effusion -small to moderate partially loculated on CT. Suspect parapneumonic effusion given confluent left lower lobe consolidation, pneumonia.
Chest ultrasound reviewed, not enough fluid for thoracentesis.
Symptomatically. Patient feels improved.
Echocardiogram ordered by Dr. Umana.
Community-acquired pneumonia
Continue Rocephin and Doxy, day 4 of antibiotics.
Strep and Legionella negative
Sputum culture pending
Blood cultures negative so far.
Polyuria -suspect related to excessive fluid intake as well as presumed BPH.
No retention on bladder ultrasound today. Start Flomax. Recommend outpatient urology follow-up. Cut down on fluids.
DVT proph: Lovenox
Code Status: Full Code
Dispo -possible discharge later today if cleared by pulmonary. Follow-up echocardiogram results.
Anticipated Discharge: Today
Subjective/Interval History
-
Date of Service: June 20, 2025
Patient seen and examined. States his chest pain has improved. Complaining of frequent urination.
Objective Data
-
Labs:
Laboratory Results
06/20/25
05:29
WBC 18.8 H
Hgb 13.3
Hct 39.4
Plt Count 422 H
Sodium 135
Potassium 4.4
Chloride 105
Carbon Dioxide 24
BUN 31 H
Creatinine 0.9
Glucose 126 H
Calcium 10.6 H
Vital Signs:
Vital Signs
Temp Pulse Resp BP Pulse Ox
99.0 F 98 17 116/75 97
06/20/25 07:28 06/20/25 07:28 06/20/25 07:28 06/20/25 07:28 06/20/25 08:50
I&O
06/19/25 06/20/25 06/21/25
06:59 06:59 06:59
Intake Total 970 / 970 480 / 480
Balance 970 / 970 480 / 480
Review of Systems
-
History Source: Patient
All other systems: Reviewed and negative
[2025-06-20] MEDS: FLOMAX 0.4 MG PO (14:33)
[2025-06-20 14:59] VITALS: BP 140/64
[2025-06-20] MEDS: LOVENOX 40 MG SC (17:04)
[2025-06-20] MEDS: UNASYN IV (18:13)
[2025-06-20 23:00] VITALS: BP 133/60
[2025-06-21] MEDS: UNASYN IV ×4 (01:00→18:06)
[2025-06-21 05:14] VITALS: BMI 21.9
[2025-06-21 05:45] LABS: Hematocrit 35.9 % (39.0-52.0); Hemoglobin 11.7 g/dL (13.0-18.0); Mean Corp Hgb Conc. 32.6 g/dL (33.0-37.0); Mean Corpuscular Volume 90.2 fL (80.0-94.0); Nucleated Red Blood Cells % 0 % (-); Platelet Count 412 10^3/uL (130-400); Red Cell Dist. Width 13.2 % (11.5-14.5)
[2025-06-21 07:38] VITALS: BP 138/67
[2025-06-21] MEDS: FLOMAX 0.4 MG PO (07:41)
--- NOTE | 2025-06-21 08:51 | W.PN.HOSP.TC ---
Today's Communication/Plan
-
Chest x-ray
Discharge
Assessment / Plan
Assessment / Plan
Gen-AAOx3, NAD
HEENT-NC, AT, anicteric, clear oral mm
Neck-supple
CV-reg, no M, +S1/S2
Lungs-clear B/L
Abd-soft, NT, ND
Ext-no edema
Musculoskeletal-no cyanosis, clubbing
Skin-warm and dry
Neuro-grossly non-focal
Psych-calm, cooperative
Symptomatic left pleural effusion -small to moderate partially loculated on CT. Suspect parapneumonic effusion given confluent left lower lobe consolidation, pneumonia.
Chest ultrasound reviewed, not enough fluid for thoracentesis.
Symptomatically. Patient feels improved.
Echocardiogram shows LVEF 62%, mild AR, mild concentric LVH, mildly dilated aortic root, mild to moderate TR.
Community-acquired pneumonia
Antibiotics changed to Unasyn given left pleural effusion, cannot differentiate between parapneumonic versus empyema. Clinically and pain is probably less likely. Fevers resolved.
Strep and Legionella negative
Sputum culture pending
Blood cultures negative so far.
Anticipate discharge on Augmentin.
Polyuria -suspect related to excessive fluid intake as well as presumed BPH.
No retention on bladder ultrasound today. Continue Flomax. Recommend outpatient urology follow-up. Cut down on fluids.
DVT proph: Lovenox
Code Status: Full Code
Dispo -probable discharge today pending chest x-ray report. Outpatient follow-up PCP, pulmonary, urology.
Anticipated Discharge: Today
Subjective/Interval History
-
Date of Service: June 21, 2025
Patient seen and examined. Complaining of lack of stamina. Denies dyspnea on exertion.
Objective Data
-
Labs:
Laboratory Results
06/21/25
05:20
WBC 14.9 H
Hgb 11.7 L
Hct 35.9 L
Plt Count 412 H
Vital Signs:
Vital Signs
Temp Pulse Resp BP Pulse Ox
98.1 F 84 17 138/67 95
06/21/25 07:38 06/21/25 07:38 06/21/25 07:38 06/21/25 07:38 06/21/25 07:38
I&O
06/20/25 06/21/25 06/22/25
06:59 06:59 06:59
Intake Total 480 / 480 1320 / 1320
Balance 480 / 480 1320 / 1320
Review of Systems
-
History Source: Patient
All other systems: Reviewed and negative
--- NOTE | 2025-06-21 11:04 | W.PN.PUL.V3 ---
Addendum entered and electronically signed by Chadwick Alcazar MD 06/21/25 14:32:
Patient had chest x-ray ordered by hospitalist.
Chest x-ray reviewed with moderate probable loculated left pleural effusion.
Reviewed with hospitalist.
Interventional radiology consultation for possible thoracentesis if there is enough fluid
Original Note:
Today's Communication / Plan
-
Increase activity
Wean FiO2
Stable for proposed discharge
Outpatient pulmonary evaluation
Assessment
-
Patient is a 80-year-old male with no significant past medical history presenting with left sided chest pain. Patient described the pain as a dull ache from the lower ribs down his left side. He reports pain is worsened lying down. He reports
lying down triggers increases cough. He notes sharp pain with cough and deep inspiration. He denies shortness of breath. He reports low grade temp of 99.9F this morning.
Several weeks prior, he noted similar complaints on the right-hand side. Denies any prior known history of lung disease, lifelong non-smoker. Denies family history of lung disease. Underwent CT demonstrating loculated pleural effusion on the left,
he is started on IV antibiotics for presumed pneumonia. We are consulted for evaluation.
Left-sided loculated effusion on CT
Chronic cough
Left side pleurisy
Low-grade temp
Leukocytosis, rising
Possible UTI, UA with 2+ blood/30-40wbc,many bacteria
Conditions present prior to admission:
No past history
Plan
Respiratory status slowly improving-lifelong nonsmoker, and no previous lung disease
Supplemental oxygen as needed-currently on room air.
Incentive spirometry.
Loculated pleural afzulufd-amieqnvsdl-wtc enough fluid to tap.
Monitor pleural fluid and it increases in size or patient becomes symptomatic and clinical scenario might dictate thoracentesis-explained to patient that fluid may reaccumulate and if he has increased shortness of breath need to get a chest x-ray
potential reevaluation for thoracentesis
Cultures reviewed
Blood cultures negative
Urine cultures negative
Sputum culture-usual respiratory raul.
MRSA screen negative.
Urine Legionella and streptococcal pneumonia antigen negative
Empiric antibiotics-finite course-currently on ceftriaxone and doxycycline
Echocardiogram 06/20/2025-EF 62%, mild aortic regurgitation, PA systolic 37.
DVT prophylaxis-on Lovenox
Stable for proposed discharge
Will arrange outpatient pulmonary evaluation in our office for PFTs and 6MWT
Diagnostic Data
Chest X-Ray:
CT Scan: CHEST -1. Small to moderate partially loculated left pleural effusion with associated confluent pleural-based left lower lobe consolidation, likely rounded atelectasis with or without a superimposed component of pneumonia.
2. Small 5 mm right lower lobe pulmonary nodule, likely benign. If the patient is considered high risk, an optional follow-up noncontrast CT chest can be obtained in 12 months. The [facility] Pulmonary Nodule Advisory Board will be notified.
3. Probable right-sided hydrocele, partially visualized.
.
Subjective Data
-
Date of Service:
Date of Service: June 21, 2025
Chief Complaint: Pulmonary Follow Up
Subjective:
No complaints of shortness of breath, chest pain, productive cough
Review of Systems
General: Other (Per HPI)
Objective Data
Data Reviewed
Vital Signs / I&O:
Vital Signs
Temp Pulse Resp BP Pulse Ox
98.1 F 84 17 138/67 95
06/21/25 07:38 06/21/25 07:38 06/21/25 07:38 06/21/25 07:38 06/21/25 07:45
Intake and Output
06/20/25 06/21/25 06/22/25
06:59 06:59 06:59
Intake Total 480 / 480 1320 / 1320
Balance 480 / 480 1320 / 1320
SaO2: 95
Physical Exam
General: Respiratory Distress (n), Comfortable and Other (NAD)
HEENT: Normocephalic, Anicteric and Moist Mucous Membranes
Cardiovascular: Regular Rhythm
Respiratory: Clear, Wheeze (n), Crackles (n), Rhonchi (n), Non-Labored Respirations, Accessory Resp Muscle Use (n) and Stridor (n)
GI: Soft, Non Distended and Non Tender
Neurology: Awake, Alert and No Motor Deficits
Skin: Warm, Dry, Good Color, Cyanosis (n), Jaundice (n) and Rash (n)
Labs/Micro/Reports
Lab Data
06/21/25 05:20
06/20/25 05:29
Microbiology
06/18/25 20:22 Sputum Respiratory Culture - Final
Usual Respiratory Raul
06/18/25 20:22 Sputum Gram Stain - Final
06/19/25 13:38 Blood/Venous Blood Culture - Preliminary
No Growth in 24 hours- Final report to follow
06/19/25 12:37 Blood/Venous Blood Culture - Preliminary
No Growth in 24 hours- Final report to follow
06/18/25 20:22 Urine Urine Culture - Final
NO GROWTH
06/18/25 20:22 Nose MRSA Screen - Final
No Methicillin Resistant Staphylococcus aureus isolated.
06/18/25 20:22 Urine Legionella Urinary Antigen - Final
Negative for Legionella pneumophila Serogroup 1 antigen.
A negative result does not rule out the possiblity of
Legionella infection due to other serogroups or species of
Legionella. Clinical correlation is recommended.
06/18/25 20:22 Urine Streptococcus pneumoniae Antigen (M - Final
Negative for Streptococcus pneumoniae antigen.
A negative result does not exclude infection with
Streptococcus pneumoniae. Clinical correlation is
recommended.
[2025-06-21 13:31] LABS: LDH 255 U/L (120-246); Total Protein 5.7 g/dl (6.3-8.2)
[2025-06-21 14:15] VITALS: BP 127/56; BP_SYST 82
[2025-06-21 14:40] VITALS: BP 104/42
[2025-06-21 15:11] VITALS: BP 150/58
[2025-06-21 16:00] LABS: Body Fluid Second Tech DW
--- NOTE | 2025-06-21 16:59 | CM ---
CM following for discharge planning. Pt is independently ambulating in his room and the hallways. Prior CM offered VN and patient declined. He continues to decline services at this time and plans to go home with no additional needs.
Plan: CM will continue to follow to coordinate discharge planning needs. Pt for a chest xray and per MD, pt will be discharged afterwards.
[2025-06-21] MEDS: LOVENOX 40 MG SC (18:06)
[2025-06-21 23:34] VITALS: BP 133/61
[2025-06-22] MEDS: UNASYN IV ×5 (00:06→23:18)
[2025-06-22 05:42] LABS: Hematocrit 35.2 % (39.0-52.0); Hemoglobin 11.9 g/dL (13.0-18.0); Mean Corp Hgb Conc. 33.8 g/dL (33.0-37.0); Mean Corpuscular Volume 91.0 fL (80.0-94.0); Nucleated Red Blood Cells % 0 % (-); Platelet Count 413 10^3/uL (130-400); Red Cell Dist. Width 13.2 % (11.5-14.5)
[2025-06-22 06:00] VITALS: BMI 21.9
[2025-06-22 07:33] VITALS: BP 129/68
[2025-06-22] MEDS: FLOMAX 0.4 MG PO (08:18)
--- NOTE | 2025-06-22 08:33 | W.PN.HOSP.TC ---
Today's Communication/Plan
-
IR consult for chest tube
Check labs
Continue antibiotics
Assessment / Plan
Assessment / Plan
Gen-AAOx3, NAD
HEENT-NC, AT, anicteric, clear oral mm
Neck-supple
CV-reg, no M, +S1/S2
Lungs-clear B/L
Abd-soft, NT, ND
Ext-no edema
Musculoskeletal-no cyanosis, clubbing
Skin-warm and dry
Neuro-grossly non-focal
Psych-calm, cooperative
Left parapneumonic effusion versus empyema -due to complicated community-acquired pneumonia.
Chest ultrasound reviewed, not enough fluid for thoracentesis.
Symptomatically. Patient feels improved.
Echocardiogram shows LVEF 62%, mild AR, mild concentric LVH, mildly dilated aortic root, mild to moderate TR.
Chest x-ray done 06/21/shows moderate left-sided loculated pleural effusion, left lower lobe pneumonia.
Thoracentesis done 06/21 yielded 150 cc clear yellow pleural fluid. Fluid is exudative in nature, pH 6.92. Anticipate chest tube placement today by IR. Discussed with pulmonary. May be difficult to completely drain given loculations. Discussed
in detail with patient, he is agreeable to chest tube.
Community-acquired pneumonia -clinically improving with downtrending of WBC count. Fevers resolved. Continue IV Unasyn.
Strep and Legionella negative
Sputum culture usual respiratory raul.
Blood cultures negative so far.
Mild hypercalcemia -10.6. Intact PTH 34.7.
Will check TSH, PTH-RP, vitamin D levels.
Polyuria -suspect related to excessive fluid intake as well as presumed BPH.
No retention on bladder ultrasound today. Continue Flomax. Recommend outpatient urology follow-up. Cut down on fluids.
DVT proph: Lovenox
Code Status: Full Code
Anticipated Discharge: > 48 hours
Subjective/Interval History
-
Date of Service: June 22, 2025
Patient seen and examined. Denies chest pain or shortness of breath.
Objective Data
-
Labs:
Laboratory Results
06/22/25
05:29
WBC 12.9 H
Hgb 11.9 L
Hct 35.2 L
Plt Count 413 H
Vital Signs:
Vital Signs
Temp Pulse Resp BP Pulse Ox
97.3 F 79 17 129/68 94
06/22/25 07:33 06/22/25 07:33 06/22/25 07:33 06/22/25 07:33 06/22/25 07:33
I&O
06/21/25 06/22/25 06/23/25
06:59 06:59 06:59
Intake Total 1320 / 1320 840 / 840
Balance 1320 / 1320 840 / 840
Review of Systems
-
History Source: Patient
All other systems: Reviewed and negative
[2025-06-22 10:31] LABS: Vitamin D, 25-OH*** 31.3 ng/mL (30-80)
[2025-06-22 10:45] LABS: TSH 0.67 uIU/ml (0.47-4.68)
--- NOTE | 2025-06-22 10:52 | W.PN.PUL.V3 ---
Today's Communication / Plan
-
.
Wean oxygen.
Thoracentesis-exudate.
Check CT chest and consider chest tube for complete drainage of complicated parapneumonic effusion/empyema
Assessment
-
Patient is a 80-year-old male with no significant past medical history presenting with left sided chest pain. Patient described the pain as a dull ache from the lower ribs down his left side. He reports pain is worsened lying down. He reports
lying down triggers increases cough. He notes sharp pain with cough and deep inspiration. He denies shortness of breath. He reports low grade temp of 99.9F this morning.
Several weeks prior, he noted similar complaints on the right-hand side. Denies any prior known history of lung disease, lifelong non-smoker. Denies family history of lung disease. Underwent CT demonstrating loculated pleural effusion on the left,
he is started on IV antibiotics for presumed pneumonia. We are consulted for evaluation.
Left-sided loculated effusion on CT-Enlarged over 3 days
Status post thoracentesis 06/21/25--150 mL, exudate, pH 6.9, WBCs-cultures No growth.
Possible chest tube 06/22/25
Chronic cough
Left side pleurisy
Low-grade temp
Leukocytosis, rising
Possible UTI, UA with 2+ blood/30-40wbc,many bacteria
Conditions present prior to admission:
No past history
Plan
Respiratory status slowly improving-lifelong nonsmoker, and no previous lung disease
Supplemental oxygen as needed-currently on room air.
Incentive spirometry.
Loculated pleural qnpkzfqw-cfmhiwytzg-rms enough fluid to tap.
Monitor pleural fluid and it increases in size or patient becomes symptomatic and clinical scenario might dictate thoracentesis-explained to patient that fluid may reaccumulate and if he has increased shortness of breath need to get a chest x-ray
potential reevaluation for thoracentesis
Cultures reviewed
Blood cultures negative
Urine cultures negative
Sputum culture-usual respiratory raul.
Left pleural fluid-no growth
MRSA screen negative.
Urine Legionella and streptococcal pneumonia antigen negative
Empiric antibiotics-finite course-currently on ceftriaxone and doxycycline.
Chest x-ray 06/21/25 with moderate left pleural effusion.
Thoracentesis left side 06/21/25-exudate, pH 6.9, WBCs, cultures negative, cytology pending-suspect complicated parapneumonic effusion or empyema.
CT chest 06/22/25-moderate loculated pleural effusion, enlarged, moderate left lower lobe consolidation, stable 5 mm right lower lobe pleural-based nodule
Consider chest tube drainage-TPA/DNase if needed
Echocardiogram 06/20/2025-EF 62%, mild aortic regurgitation, PA systolic 37.
DVT prophylaxis-on Lovenox
Stable for proposed discharge
Will arrange outpatient pulmonary evaluation in our office for PFTs and 6MWT
Diagnostic Data
Chest X-Ray:
CT Scan: CHEST -1. Small to moderate partially loculated left pleural effusion with associated confluent pleural-based left lower lobe consolidation, likely rounded atelectasis with or without a superimposed component of pneumonia.
2. Small 5 mm right lower lobe pulmonary nodule, likely benign. If the patient is considered high risk, an optional follow-up noncontrast CT chest can be obtained in 12 months. The [facility] Pulmonary Nodule Advisory Board will be notified.
3. Probable right-sided hydrocele, partially visualized.
.
Subjective Data
-
Date of Service:
Date of Service: June 22, 2025
Chief Complaint: Pulmonary Follow Up
Subjective:
Appears angry, no complaints shortness of breath, productive cough, or abdominal pain
Review of Systems
General: Other ( per HPI)
Objective Data
Data Reviewed
Vital Signs / I&O:
Vital Signs
Temp Pulse Resp BP Pulse Ox
97.3 F 79 17 129/68 94
06/22/25 07:33 06/22/25 07:33 06/22/25 07:33 06/22/25 07:33 06/22/25 07:33
Intake and Output
06/21/25 06/22/25 06/23/25
06:59 06:59 06:59
Intake Total 1320 / 1320 840 / 840
Balance 1320 / 1320 840 / 840
SaO2: 94
Physical Exam
General: Respiratory Distress (n), Comfortable and Other (NAD)
HEENT: Normocephalic, Anicteric and Moist Mucous Membranes
Cardiovascular: Regular Rhythm
Respiratory: Clear, Wheeze (n), Crackles (n), Rhonchi (n), Non-Labored Respirations, Accessory Resp Muscle Use (n) and Stridor (n)
GI: Soft, Non Distended and Non Tender
Neurology: Awake, Alert and No Motor Deficits
Skin: Warm, Dry, Good Color, Cyanosis (n), Jaundice (n) and Rash (n)
Labs/Micro/Reports
Lab Data
06/22/25 05:29
06/20/25 05:29
Microbiology
06/21/25 14:58 Pleural Fluid Gram Stain - Preliminary
06/19/25 13:38 Blood/Venous Blood Culture - Preliminary
No Growth in 48 hours- Final report to follow
06/19/25 12:37 Blood/Venous Blood Culture - Preliminary
No Growth in 48 hours- Final report to follow
06/18/25 20:22 Sputum Respiratory Culture - Final
Usual Respiratory Raul
06/18/25 20:22 Sputum Gram Stain - Final
06/18/25 20:22 Urine Urine Culture - Final
NO GROWTH
06/18/25 20:22 Nose MRSA Screen - Final
No Methicillin Resistant Staphylococcus aureus isolated.
06/18/25 20:22 Urine Legionella Urinary Antigen - Final
Negative for Legionella pneumophila Serogroup 1 antigen.
A negative result does not rule out the possiblity of
Legionella infection due to other serogroups or species of
Legionella. Clinical correlation is recommended.
06/18/25 20:22 Urine Streptococcus pneumoniae Antigen (M - Final
Negative for Streptococcus pneumoniae antigen.
A negative result does not exclude infection with
Streptococcus pneumoniae. Clinical correlation is
recommended.
[2025-06-22 15:22] VITALS: BP 142/57
[2025-06-22 15:35] VITALS: BP 139/62; BP_SYST 82
[2025-06-22] MEDS: ATIVAN 0.5 MG IV (16:02)
[2025-06-22] MEDS: NSS (PRESERVATIVE FREE) 0.25 ML IV (16:02)
[2025-06-22 17:00] VITALS: BP 145/68; BP_SYST 79
[2025-06-22 17:50] VITALS: BP 130/70
[2025-06-22] MEDS: LOVENOX 40 MG SC (17:52)
[2025-06-22] MEDS: TORADOL 10 MG IV (19:07)
--- NOTE | 2025-06-22 19:12 | PTCARENOTE ---
Addendum entered by Ann Panda RN 06/22/25 19:17:
PRN toradol adminstered at this time. Dressing dry and intact. poc ongoing.
Original Note:
Pt received back to floor after chest tube insertion. VSS and pt not complaining of pain upon arrival to the unit. Chest tube unclamped and connected to -20 sution @1850 per order. Pt now complaianing of 10/10 pain. [employer] made aware and sw pt @bedsdie
[2025-06-22] MEDS: MORPHINE SULFATE 0.5 MG IV (23:17)
[2025-06-22 23:45] VITALS: BP 144/68
[2025-06-23 06:00] VITALS: BMI 21.5
[2025-06-23 06:02] LABS: Hematocrit 36.2 % (39.0-52.0); Hemoglobin 12.0 g/dL (13.0-18.0); Mean Corp Hgb Conc. 33.1 g/dL (33.0-37.0); Mean Corpuscular Volume 90.0 fL (80.0-94.0); Nucleated Red Blood Cells % 0 % (-); Platelet Count 439 10^3/uL (130-400); Red Cell Dist. Width 13.3 % (11.5-14.5)
[2025-06-23 06:06] LABS: ALT (SGPT) 60 U/L (0-50); AST (SGOT) 39 U/L (17-59); Albumin 2.5 g/dl (3.5-5.0); Alkaline Phosphatase 95 U/L (38-126); Blood Urea Nitrogen 21 mg/dl (9-20); Calcium 9.9 mg/dl (8.4-10.2); Carbon Dioxide 23 mmol/L (22-30); Chloride 105 mmol/L (98-107); Estimated Creatinine Clearance 85 ml/min; Glucose 113 mg/dl (70-99); Potassium 4.7 mmol/L (3.5-5.1); Sodium 133 mmol/L (135-145); Total Protein 5.3 g/dl (6.3-8.2); eGFR > 60.00
[2025-06-23] MEDS: UNASYN IV ×3 (06:10→17:38)
[2025-06-23 08:30] VITALS: BP 135/70
[2025-06-23] MEDS: FLOMAX 0.4 MG PO (09:13)
--- NOTE | 2025-06-23 10:38 | W.PN.PUL.V3 ---
Today's Communication / Plan
-
.
Wean oxygen.
Continue antibiotics.
Continue chest tube drainage.
Monitor radiographically to ensure complete clearing
Assessment
-
Patient is a 80-year-old male with no significant past medical history presenting with left sided chest pain. Patient described the pain as a dull ache from the lower ribs down his left side. He reports pain is worsened lying down. He reports
lying down triggers increases cough. He notes sharp pain with cough and deep inspiration. He denies shortness of breath. He reports low grade temp of 99.9F this morning.
Several weeks prior, he noted similar complaints on the right-hand side. Denies any prior known history of lung disease, lifelong non-smoker. Denies family history of lung disease. Underwent CT demonstrating loculated pleural effusion on the left,
he is started on IV antibiotics for presumed pneumonia. We are consulted for evaluation.
Left-sided loculated effusion on CT-Enlarged over 3 days
Status post thoracentesis 06/21/25--150 mL, exudate, pH 6.9, WBCs-cultures No growth.
Possible chest tube 06/22/25
Chronic cough
Left side pleurisy
Low-grade temp
Leukocytosis, rising
Possible UTI, UA with 2+ blood/30-40wbc,many bacteria
Conditions present prior to admission:
No past history
Plan
Respiratory status slowly improving-lifelong nonsmoker, and no previous lung disease
Supplemental oxygen as needed-currently on room air.
Incentive spirometry.
Loculated pleural wseubtxf-reiykhsaoo-cqs enough fluid to tap.
Monitor pleural fluid and it increases in size or patient becomes symptomatic and clinical scenario might dictate thoracentesis-explained to patient that fluid may reaccumulate and if he has increased shortness of breath need to get a chest x-ray
potential reevaluation for thoracentesis
Cultures reviewed
Blood cultures negative
Urine cultures negative
Sputum culture-usual respiratory raul.
Left pleural fluid-no growth
MRSA screen negative.
Urine Legionella and streptococcal pneumonia antigen negative
Empiric antibiotics-finite course-currently on ceftriaxone and doxycycline.
Chest x-ray 06/21/25 with moderate left pleural effusion.
Thoracentesis left side 06/21/25-exudate, pH 6.9, WBCs, cultures negative, cytology pending-suspect complicated parapneumonic effusion or empyema., cytology pending
CT chest 06/22/25-moderate loculated pleural effusion, enlarged, moderate left lower lobe consolidation, stable 5 mm right lower lobe pleural-based nodule
Chest tube placement 06/22/25 With pleural lysis-TPA and dornase
Chest x-ray 06/23/25- interval insertion of left basilar chest tube with significant interval improvement of loculated left pleural effusion..
Monitor chest tube output --1500 mL/24 hour
Follow chest x-ray.
Consider -TPA/DNase if needed
Echocardiogram 06/20/2025-EF 62%, mild aortic regurgitation, PA systolic 37.
DVT prophylaxis-on Lovenox
Will arrange outpatient pulmonary evaluation in our office for PFTs and 6MWT
Diagnostic Data
Chest X-Ray:
CT Scan: CHEST -1. Small to moderate partially loculated left pleural effusion with associated confluent pleural-based left lower lobe consolidation, likely rounded atelectasis with or without a superimposed component of pneumonia.
2. Small 5 mm right lower lobe pulmonary nodule, likely benign. If the patient is considered high risk, an optional follow-up noncontrast CT chest can be obtained in 12 months. The [facility] Pulmonary Nodule Advisory Board will be notified.
3. Probable right-sided hydrocele, partially visualized.
.
Subjective Data
-
Date of Service:
Date of Service: June 23, 2025
Chief Complaint: Pulmonary Follow Up and Dyspnea Follow Up
Subjective:
No complaints of shortness of breath, chest pain or abdominal pain
Review of Systems
General: Other ( per HPI)
Objective Data
Data Reviewed
Vital Signs / I&O:
Vital Signs
Temp Pulse Resp BP Pulse Ox
99.6 F 78 16 135/70 93
06/22/25 23:45 06/23/25 08:30 06/23/25 08:30 06/23/25 08:30 06/23/25 08:30
Intake and Output
06/22/25 06/23/25 06/24/25
06:59 06:59 06:59
Intake Total 840 / 840 1320 / 1320
Output Total 1725 / 1725
Balance 840 / 840 -405 / -405
SaO2: 93
Physical Exam
General: Respiratory Distress (n), Comfortable and Other (NAD)
HEENT: Normocephalic, Anicteric and Moist Mucous Membranes
Cardiovascular: Regular Rhythm
Respiratory: Clear, Wheeze (n), Crackles (n), Rhonchi (n), Non-Labored Respirations, Accessory Resp Muscle Use (n) and Stridor (n)
GI: Soft, Non Distended and Non Tender
Neurology: Awake, Alert and No Motor Deficits
Skin: Warm, Dry, Good Color, Cyanosis (n), Jaundice (n) and Rash (n)
Labs/Micro/Reports
Lab Data
06/23/25 05:16
06/23/25 05:16
Microbiology
06/21/25 14:58 Pleural Fluid Body Fluid Culture - Preliminary
No Growth After 48 Hours
06/21/25 14:58 Pleural Fluid Gram Stain - Preliminary
06/19/25 13:38 Blood/Venous Blood Culture - Preliminary
No Growth in 72 hours- Final report to follow
06/19/25 12:37 Blood/Venous Blood Culture - Preliminary
No Growth in 72 hours- Final report to follow
06/18/25 20:22 Sputum Respiratory Culture - Final
Usual Respiratory Raul
06/18/25 20:22 Sputum Gram Stain - Final
06/18/25 20:22 Urine Urine Culture - Final
NO GROWTH
06/18/25 20:22 Nose MRSA Screen - Final
No Methicillin Resistant Staphylococcus aureus isolated.
--- NOTE | 2025-06-23 11:02 | W.PN.HOSP.TC ---
Today's Communication/Plan
-
Continue antibiotics
Monitor chest tube output
Bowel regimen
Assessment / Plan
Assessment / Plan
Gen-AAOx3, NAD
HEENT-NC, AT, anicteric, clear oral mm
Neck-supple
CV-reg, no M, +S1/S2
Lungs-clear B/L, left-sided chest tube in place
Abd-soft, NT, ND
Ext-no edema
Musculoskeletal-no cyanosis, clubbing
Skin-warm and dry
Neuro-grossly non-focal
Psych-calm, cooperative
Left parapneumonic effusion versus empyema -due to complicated community-acquired pneumonia. Continue IV Unasyn.
Chest ultrasound 06/19 reviewed, not enough fluid for thoracentesis.
Chest x-ray done 06/21/shows moderate left-sided loculated pleural effusion, left lower lobe pneumonia.
Thoracentesis done 06/21 yielded 150 cc clear yellow pleural fluid. Fluid is exudative in nature, pH 6.92.
Chest tube placed 06/22 by IR, pleural lysis performed with administration of intrathoracic alteplase and dornase. Outstanding result with 1.5 L fluid output, repeat chest x-ray today 06/23 shows significant improvement in left pleural effusion.
Community-acquired pneumonia -clinically improving with downtrending of WBC count. Fevers resolved. Continue IV Unasyn. Leukocytosis improved.
Strep and Legionella negative
Sputum culture usual respiratory raul.
Blood cultures negative so far.
Hyponatremia -133, monitor for now.
Mild hypercalcemia - improved to 9.9. Intact PTH 34.7.
TSH 0.67, 25-hydroxyvitamin D 31.
1,25 dihydroxy vitamin D level pending, PTH-RP level pending.
Polyuria -suspect related to excessive fluid intake as well as presumed BPH.
No retention on bladder ultrasound today. Continue Flomax. Recommend outpatient urology follow-up. Cut down on fluids.
DVT proph: Lovenox
Code Status: Full Code
Anticipated Discharge: > 48 hours
Subjective/Interval History
-
Date of Service: June 23, 2025
Patient seen and examined. Feels better. No complaints.
Objective Data
-
Labs:
Laboratory Results
06/23/25
05:16
WBC 11.4 H
Hgb 12.0 L
Hct 36.2 L
Plt Count 439 H
Sodium 133 L
Potassium 4.7
Chloride 105
Carbon Dioxide 23
BUN 21 H
Creatinine 0.8
Glucose 113 H
Calcium 9.9
Total Bilirubin 0.4
AST 39
ALT 60 H
Alkaline Phosphatase 95
Vital Signs:
Vital Signs
Temp Pulse Resp BP Pulse Ox
99.6 F 78 16 135/70 93
06/22/25 23:45 06/23/25 08:30 06/23/25 08:30 06/23/25 08:30 06/23/25 10:38
I&O
06/22/25 06/23/25 06/24/25
06:59 06:59 06:59
Intake Total 840 / 840 1320 / 1320
Output Total 1725 / 1725
Balance 840 / 840 -405 / -405
Review of Systems
-
History Source: Patient
All other systems: Reviewed and negative
[2025-06-23] MEDS: MIRALAX 17 GRAMS PO (12:43)
[2025-06-23] MEDS: TYLENOL 650 MG PO ×2 (13:16→20:02)
[2025-06-23 15:36] VITALS: BP 133/67
--- NOTE | 2025-06-23 16:39 | CM ---
CM continues to follow; pt had a chest tube placed yesterday; significant improvement of pleural effusion.
Pt would like to return home at discharge with no additional needs.
[2025-06-23] MEDS: LOVENOX 40 MG SC (17:39)
[2025-06-23] MEDS: COLACE 100 MG PO (20:02)
[2025-06-23] MEDS: MORPHINE SULFATE 0.5 MG IV (21:21)
[2025-06-23 23:10] VITALS: BP 115/54
[2025-06-24] MEDS: UNASYN IV ×5 (00:01→23:43)
[2025-06-24 00:20] VITALS: BP 132/65
[2025-06-24 06:00] VITALS: BMI 21.6
[2025-06-24 06:15] LABS: ALT (SGPT) 71 U/L (0-50); AST (SGOT) 44 U/L (17-59); Albumin 2.6 g/dl (3.5-5.0); Alkaline Phosphatase 98 U/L (38-126); Blood Urea Nitrogen 16 mg/dl (9-20); Calcium 10.1 mg/dl (8.4-10.2); Carbon Dioxide 26 mmol/L (22-30); Chloride 106 mmol/L (98-107); Estimated Creatinine Clearance 84 ml/min; Glucose 110 mg/dl (70-99); Potassium 5.0 mmol/L (3.5-5.1); Sodium 133 mmol/L (135-145); Total Protein 5.4 g/dl (6.3-8.2); eGFR > 60.00
[2025-06-24 07:05] VITALS: BP 151/74
[2025-06-24] MEDS: TYLENOL 650 MG PO (08:07)
[2025-06-24] MEDS: MIRALAX 17 GRAMS PO (08:07)
[2025-06-24] MEDS: COLACE 100 MG PO ×2 (08:08→19:52)
[2025-06-24] MEDS: FLOMAX 0.4 MG PO (08:08)
--- NOTE | 2025-06-24 10:23 | W.PN.PUL.V3 ---
Today's Communication / Plan
-
Decreased chest tube output
Continue antibiotics
Interventional radiology contacted-options are to pull chest tube, chest tube manipulation to see if there is any additional fluid that can be removed or even another tPA/DNase trial
Outpatient pulmonary follow-up
Assessment
-
Patient is a 80-year-old male with no significant past medical history presenting with left sided chest pain. Patient described the pain as a dull ache from the lower ribs down his left side. He reports pain is worsened lying down. He reports
lying down triggers increases cough. He notes sharp pain with cough and deep inspiration. He denies shortness of breath. He reports low grade temp of 99.9F this morning.
Several weeks prior, he noted similar complaints on the right-hand side. Denies any prior known history of lung disease, lifelong non-smoker. Denies family history of lung disease. Underwent CT demonstrating loculated pleural effusion on the left,
he is started on IV antibiotics for presumed pneumonia. We are consulted for evaluation.
Left-sided loculated effusion on CT-Enlarged over 3 days
Status post thoracentesis 06/21/25--150 mL, exudate, pH 6.9, WBCs-cultures No growth.
Possible chest tube 06/22/25
Chronic cough
Left side pleurisy
Low-grade temp
Leukocytosis, rising
Possible UTI, UA with 2+ blood/30-40wbc,many bacteria
Conditions present prior to admission:
No past history
Plan
Respiratory status slowly improving-lifelong nonsmoker, and no previous lung disease
Supplemental oxygen as needed-currently on room air.
Incentive spirometry.
Loculated pleural ilwpgcmm-uwlphkqfzz-tgmofvjjm not enough fluid to tap-subsequently pleural fluid increased in size and thoracentesis and eventual chest tube was performed
Cultures reviewed
Blood cultures negative
Urine cultures negative
Sputum culture-usual respiratory raul.
Left pleural fluid-no growth
MRSA screen negative.
Urine Legionella and streptococcal pneumonia antigen negative
Empiric antibiotics-finite course-currently on ceftriaxone and doxycycline.
Chest x-ray 06/21/25 with moderate left pleural effusion.
Thoracentesis left side 06/21/25-exudate, pH 6.9, WBCs, cultures negative, cytology pending-suspect complicated parapneumonic effusion or empyema., cytology pending
CT chest 06/22/25-moderate loculated pleural effusion, enlarged, moderate left lower lobe consolidation, stable 5 mm right lower lobe pleural-based nodule
Chest tube placement 06/22/25 With pleural lysis-TPA and dornase
Chest x-ray 06/23/25- interval insertion of left basilar chest tube with significant interval improvement of loculated left pleural effusion..
Chest x-ray 06/24/2025-improved left pleural effusion with residual small left pleural effusion
Monitor chest tube output --1500 mL/first 24 hour then 170 mL /last 24 hours
Interventional radiology contacted-is there a role for chest tube manipulation, additional tPA/DNase or just remove chest tube with minimal fluid left
Echocardiogram 06/20/2025-EF 62%, mild aortic regurgitation, PA systolic 37.
DVT prophylaxis-on Lovenox
Will arrange outpatient pulmonary evaluation in our office for PFTs and 6MWT
Diagnostic Data
Chest X-Ray:
CT Scan: CHEST -1. Small to moderate partially loculated left pleural effusion with associated confluent pleural-based left lower lobe consolidation, likely rounded atelectasis with or without a superimposed component of pneumonia.
2. Small 5 mm right lower lobe pulmonary nodule, likely benign. If the patient is considered high risk, an optional follow-up noncontrast CT chest can be obtained in 12 months. The [facility] Pulmonary Nodule Advisory Board will be notified.
3. Probable right-sided hydrocele, partially visualized.
.
Subjective Data
-
Date of Service:
Date of Service: June 24, 2025
Chief Complaint: Pulmonary Follow Up and Dyspnea Follow Up
Subjective:
Feels better, no complaints of shortness of breath, chest tube site pain, or abdominal pain
Review of Systems
General: Other (Per HPI)
Objective Data
Data Reviewed
Vital Signs / I&O:
Vital Signs
Temp Pulse Resp BP Pulse Ox
98.5 F 78 18 151/74 94
06/24/25 07:05 06/24/25 07:05 06/24/25 07:05 06/24/25 07:05 06/24/25 07:05
Intake and Output
06/23/25 06/24/25 06/25/25
06:59 06:59 06:59
Intake Total 1320 / 1320 480 / 480
Output Total 1725 / 1725 1725 / 1725
Balance -405 / -405 -1245 / -1245
SaO2: 94
Physical Exam
General: Respiratory Distress (n), Comfortable and Other (NAD)
HEENT: Normocephalic, Anicteric and Moist Mucous Membranes
Cardiovascular: Regular Rhythm
Respiratory: Clear, Wheeze (n), Crackles (n), Rhonchi (n), Non-Labored Respirations, Accessory Resp Muscle Use (n), Stridor (n) and Chest Tube
GI: Soft, Non Distended and Non Tender
Neurology: Awake, Alert and No Motor Deficits
Skin: Warm, Dry, Good Color, Cyanosis (n), Jaundice (n) and Rash (n)
Labs/Micro/Reports
Lab Data
06/23/25 05:16
06/24/25 05:31
Microbiology
06/19/25 13:38 Blood/Venous Blood Culture - Preliminary
No Growth in 4 days- Final report to follow
06/19/25 12:37 Blood/Venous Blood Culture - Preliminary
No Growth in 4 days- Final report to follow
06/21/25 14:58 Pleural Fluid Body Fluid Culture - Preliminary
No Growth After 48 Hours
06/21/25 14:58 Pleural Fluid Gram Stain - Preliminary
06/18/25 20:22 Sputum Respiratory Culture - Final
Usual Respiratory Raul
06/18/25 20:22 Sputum Gram Stain - Final
--- NOTE | 2025-06-24 11:18 | W.PN.HOSP.TC ---
Today's Communication/Plan
-
Continue current care
Assessment / Plan
Assessment / Plan
Gen-AAOx3, NAD
HEENT-NC, AT, anicteric, clear oral mm
Neck-supple
CV-reg, no M, +S1/S2
Lungs-clear B/L, left-sided chest tube in place
Abd-soft, NT, ND
Ext-no edema
Musculoskeletal-no cyanosis, clubbing
Skin-warm and dry
Neuro-grossly non-focal
Psych-calm, cooperative
Left parapneumonic effusion versus empyema -due to complicated community-acquired pneumonia. Continue IV Unasyn.
Chest ultrasound 06/19 reviewed, not enough fluid for thoracentesis.
Chest x-ray done 06/21/shows moderate left-sided loculated pleural effusion, left lower lobe pneumonia.
Thoracentesis done 06/21 yielded 150 cc clear yellow pleural fluid. Fluid is exudative in nature, pH 6.92.
Chest tube placed 06/22 by IR, pleural lysis performed with administration of intrathoracic alteplase and dornase.
Chest x-ray shows continued interval improvement in left basilar loculated pleural effusion. Small residual pocket of fluid projecting from the left midlung noted.
Chest tube output significantly down overnight.
Chest tube management per IR/pulmonary.
Community-acquired pneumonia -clinically improving with downtrending of WBC count. Fevers resolved. Continue IV Unasyn. Leukocytosis improved.
Strep and Legionella negative
Sputum culture usual respiratory raul.
Blood cultures negative so far.
Hyponatremia -133, monitor for now.
Mild hypercalcemia - improved to 9.9. Intact PTH 34.7.
TSH 0.67, 25-hydroxyvitamin D 31.
1,25 dihydroxy vitamin D level pending, PTH-RP level pending.
Polyuria -suspect related to excessive fluid intake as well as presumed BPH.
No retention on bladder ultrasound today. Continue Flomax. Recommend outpatient urology follow-up. Cut down on fluids.
DVT proph: Lovenox
Code Status: Full Code
Anticipated Discharge: Within 24 hours
Subjective/Interval History
-
Date of Service: June 24, 2025
Patient seen and examined. Feels fine, asking to go home.
Objective Data
-
Labs:
Laboratory Results
06/24/25
05:31
Sodium 133 L
Potassium 5.0
Chloride 106
Carbon Dioxide 26
BUN 16
Creatinine 0.8
Glucose 110 H
Calcium 10.1
Total Bilirubin 0.4
AST 44
ALT 71 H
Alkaline Phosphatase 98
Vital Signs:
Vital Signs
Temp Pulse Resp BP Pulse Ox
98.5 F 78 18 151/74 94
06/24/25 07:05 06/24/25 07:05 06/24/25 07:05 06/24/25 07:05 06/24/25 10:23
I&O
06/23/25 06/24/25 06/25/25
06:59 06:59 06:59
Intake Total 1320 / 1320 480 / 480
Output Total 1725 / 1725 1725 / 1725
Balance -405 / -405 -1245 / -1245
Review of Systems
-
History Source: Patient
All other systems: Reviewed and negative
--- NOTE | 2025-06-24 13:18 | PN.IRAD.UPD ---
Update Note - IRAD
- -
10MG TPA, 5MG DORNASE instilled via left chest tube at bedside at 1300. Chest tube was clamped at that time. Patient tolerated procedure with minimal discomfort. RN notified.
[2025-06-24] MEDS: MORPHINE SULFATE 0.5 MG IV ×2 (13:55→19:59)
[2025-06-24 15:14] VITALS: BP 133/47
--- NOTE | 2025-06-24 15:14 | PTCARENOTE ---
Chest tube unclamped per order.
[2025-06-24] MEDS: LOVENOX 40 MG SC (17:32)
[2025-06-24 23:20] VITALS: BP 132/65
[2025-06-25 00:23] VITALS: BP 132/65
[2025-06-25] MEDS: UNASYN IV ×4 (05:33→23:46)
[2025-06-25 06:00] VITALS: BMI 21.5
[2025-06-25 07:00] VITALS: BP 130/66
[2025-06-25] MEDS: MIRALAX 17 GRAMS PO (08:27)
[2025-06-25] MEDS: FLOMAX 0.4 MG PO (08:27)
[2025-06-25] MEDS: COLACE 100 MG PO ×2 (08:27→23:46)
[2025-06-25 08:34] VITALS: BP 130/66
--- NOTE | 2025-06-25 12:09 | W.PN.HOSP.TC ---
Today's Communication/Plan
-
Await pulmonary input
Assessment / Plan
Assessment / Plan
Gen-AAOx3, NAD
HEENT-NC, AT, anicteric, clear oral mm
Neck-supple
CV-reg, no M, +S1/S2
Lungs-clear B/L, left-sided chest tube in place
Abd-soft, NT, ND
Ext-no edema
Musculoskeletal-no cyanosis, clubbing
Skin-warm and dry
Neuro-grossly non-focal
Psych-calm, cooperative
Left parapneumonic effusion versus empyema -due to complicated community-acquired pneumonia. Continue IV Unasyn.
Chest ultrasound 06/19 reviewed, not enough fluid for thoracentesis.
Chest x-ray done 06/21/shows moderate left-sided loculated pleural effusion, left lower lobe pneumonia.
Thoracentesis done 06/21 yielded 150 cc clear yellow pleural fluid. Fluid is exudative in nature, pH 6.92.
Chest tube placed 06/22 by IR, pleural lysis performed with administration of intrathoracic alteplase and dornase.
Chest x-ray shows continued interval improvement in left basilar loculated pleural effusion. Small residual pocket of fluid projecting from the left midlung noted.
Chest tube output significantly down overnight, 15 cc.
Chest tube management per IR/pulmonary. Can pull chest tube when okay with pulmonary service.
Community-acquired pneumonia -clinically improving with downtrending of WBC count. Fevers resolved. Continue IV Unasyn. Leukocytosis improved.
Strep and Legionella negative
Sputum culture usual respiratory raul.
Blood cultures negative so far.
Hyponatremia -133, monitor for now.
Mild hypercalcemia - improved to 9.9. Intact PTH 34.7.
TSH 0.67, 25-hydroxyvitamin D 31.
1,25-dihydroxyvitamin D level normal, PTH-RP level pending.
Polyuria -suspect related to excessive fluid intake as well as presumed BPH.
No retention on bladder ultrasound today. Continue Flomax. Recommend outpatient urology follow-up. Cut down on fluids.
DVT proph: Lovenox
Code Status: Full Code
Anticipated Discharge: Within 24 hours
Subjective/Interval History
-
Date of Service: June 25, 2025
Patient seen and examined. No complaints.
Objective Data
-
Vital Signs:
Vital Signs
Temp Pulse Resp BP Pulse Ox
98.5 F 73 14 130/66 96
06/25/25 07:00 06/25/25 07:00 06/25/25 07:00 06/25/25 07:00 06/25/25 07:00
I&O
06/24/25 06/25/25 06/26/25
06:59 06:59 06:59
Intake Total 480 / 480 1440 / 1440
Output Total 1725 / 1725 1715 / 1715
Balance -1245 / -1245 -275 / -275
Review of Systems
-
History Source: Patient
All other systems: Reviewed and negative
--- NOTE | 2025-06-25 14:12 | PTCARENOTE ---
Chest tube became disconnected somehow at stopcock. Pt noticed immediately (heard the tube fall and bubbling in atrium), called out to nurse who happened to be outside his room. Connection scrubbed with alcohol swab and reattached - suction intact.
No crepitus noted, lung sounds unchanged. Pt denied any change in pain he's been feeling on L side - able to take deep breath. TT to pulm - will check a portable CXR now, ordered.
[2025-06-25 15:00] VITALS: BP 124/68
--- NOTE | 2025-06-25 17:15 | W.PN.PUL3 ---
Today's Communication / Plan
-
Decreased chest tube output - check CT chest
Continue antibiotics (unasyn)
Interventional radiology contacted-options are to pull chest tube, chest tube manipulation to see if there is any additional fluid that can be removed or even another tPA/DNase trial
Outpatient pulmonary follow-up
Assessment
-
Patient is a 80-year-old male with no significant past medical history presenting with left sided chest pain. Patient described the pain as a dull ache from the lower ribs down his left side. He reports pain is worsened lying down. He reports
lying down triggers increases cough. He notes sharp pain with cough and deep inspiration. He denies shortness of breath. He reports low grade temp of 99.9F this morning.
Several weeks prior, he noted similar complaints on the right-hand side. Denies any prior known history of lung disease, lifelong non-smoker. Denies family history of lung disease. Underwent CT demonstrating loculated pleural effusion on the left,
he is started on IV antibiotics for presumed pneumonia. We are consulted for evaluation.
Left-sided loculated effusion due to empyema
Status post thoracentesis 06/21/25--150 mL, exudate, pH 6.9, WBCs-cultures No growth.
s/p chest tube inserted 06/22/25
Chronic cough
Left side pleurisy
Low-grade temp
Leukocytosis, rising
Possible UTI, UA with 2+ blood/30-40wbc,many bacteria
Conditions present prior to admission:
No past history
Plan
Respiratory status slowly improving-lifelong nonsmoker, and no previous lung disease
Supplemental oxygen as needed-currently on room air.
Incentive spirometry encouraged
Loculated pleural tjtmofvy-wgwpztuujb-vrqwpnihj not enough fluid to tap-subsequently pleural fluid increased in size and thoracentesis and eventual chest tube was performed (on 06/22)
Cultures reviewed
Blood cultures negative
Urine cultures negative
Sputum culture-usual respiratory raul.
Left pleural fluid-no growth
MRSA screen negative.
Urine Legionella and streptococcal pneumonia antigen negative
Empiric antibiotics-finite course-currently on unasyn s/p ceftriaxone and doxycycline.
Chest x-ray 06/21/25 with moderate left pleural effusion.
Thoracentesis left side 06/21/25-exudate, pH 6.9, WBCs, cultures negative, cytology pending-suspect complicated parapneumonic effusion or empyema., cytology pending
CT chest 06/22/25-moderate loculated pleural effusion, enlarged, moderate left lower lobe consolidation, stable 5 mm right lower lobe pleural-based nodule
Chest tube placement 06/22/25 With pleural lysis-TPA and dornase
Chest x-ray 06/23/25- interval insertion of left basilar chest tube with significant interval improvement of loculated left pleural effusion..
Chest x-ray 06/24/2025-improved left pleural effusion with residual small left pleural effusion
Monitor chest tube output
Interventional radiology contacted-is there a role for chest tube manipulation, additional tPA/DNase or just remove chest tube with minimal fluid left
- Check CT chest to assess LLL empyema
Echocardiogram 06/20/2025-EF 62%, mild aortic regurgitation, PA systolic 37.
DVT prophylaxis-on Lovenox
Will arrange outpatient pulmonary evaluation in our office for PFTs and 6MWT
Pulmonary service will continue to follow
Diagnostic Data
Chest X-Ray:
CT Scan: CHEST -1. Small to moderate partially loculated left pleural effusion with associated confluent pleural-based left lower lobe consolidation, likely rounded atelectasis with or without a superimposed component of pneumonia.
2. Small 5 mm right lower lobe pulmonary nodule, likely benign. If the patient is considered high risk, an optional follow-up noncontrast CT chest can be obtained in 12 months. The [facility] Pulmonary Nodule Advisory Board will be notified.
3. Probable right-sided hydrocele, partially visualized.
.
Patient was seen and evaluated on 06/25/2025 Total time spent today was 38 minutes for this encounter. Time includes reviewing laboratory test/imaging results, reviewing pertinent medical records, obtaining and reviewing medical history,
performing an appropriate exam, ordering medications, tests and procedures. Time also includes documentation of this encounter, coordinating patient care and communicating with other healthcare professionals. Total time does not include separately
billed tests performed on this date of service.
Subjective Data
-
Date of Service:
Date of Service: June 25, 2025
Chief Complaint: Pulmonary Follow Up and Dyspnea Follow Up
Subjective:
Nerve patient seen and evaluated today at bedside (late note entry). Eager to go home. Chest tube is minimally draining. Afebrile overnight
Review of Systems
General: Other (Negative unless mentioned above)
Objective Data
Data Reviewed
Vital Signs / I&O / Oxygen:
Vital Signs
Temp Pulse Resp BP Pulse Ox
98.5 F 73 14 130/66 96
06/25/25 07:00 06/25/25 07:00 06/25/25 07:00 06/25/25 07:00 06/25/25 07:00
Intake and Output
06/24/25 06/25/25 06/26/25
06:59 06:59 06:59
Intake Total 480 / 480 1440 / 1440
Output Total 1725 / 1725 1715 / 1715
Balance -1245 / -1245 -275 / -275
SaO2 96
Physical Exam
General: Respiratory Distress (n), Comfortable and Other (NAD)
HEENT: Normocephalic, Anicteric and Moist Mucous Membranes
Cardiovascular: Regular Rhythm
Respiratory: Clear, Wheeze (n), Crackles (n), Rhonchi (n), Non-Labored Respirations, Accessory Resp Muscle Use (n), Stridor (n), Chest Tube (Left hemithorax currently on -20 cmH2O with no airleak) and Other (Diminished breath sounds at left base)
GI: Soft, Non Distended and Non Tender
Neurology: Awake, Alert, Oriented and Tremors (n)
Skin: Warm, Dry, Cyanosis (n), Jaundice (n) and Rash (n)
Labs/Micro/Reports
Lab Data
06/23/25 05:16
06/24/25 05:31
Microbiology
06/19/25 13:38 Blood/Venous Blood Culture - Final
No Growth - Final Report
06/19/25 12:37 Blood/Venous Blood Culture - Final
No Growth - Final Report
06/21/25 14:58 Pleural Fluid Body Fluid Culture - Final
No Growth After 72 Hours
06/21/25 14:58 Pleural Fluid Gram Stain - Final
[2025-06-25] MEDS: LOVENOX 40 MG SC (17:37)
[2025-06-25 23:36] VITALS: BP 126/69
[2025-06-26] MEDS: UNASYN IV ×3 (05:28→17:39)
[2025-06-26 06:00] VITALS: BMI 21.4
[2025-06-26 07:05] VITALS: BP 151/84
[2025-06-26] MEDS: COLACE 100 MG PO (08:17)
[2025-06-26] MEDS: MIRALAX 17 GRAMS PO (08:17)
[2025-06-26] MEDS: FLOMAX 0.4 MG PO (08:17)
--- NOTE | 2025-06-26 10:48 | W.PN.HOSP.TC ---
Today's Communication/Plan
-
CT chest
Assessment / Plan
Assessment / Plan
Gen-AAOx3, NAD
HEENT-NC, AT, anicteric, clear oral mm
Neck-supple
CV-reg, no M, +S1/S2
Lungs-clear B/L, left-sided chest tube in place
Abd-soft, NT, ND
Ext-no edema
Musculoskeletal-no cyanosis, clubbing
Skin-warm and dry
Neuro-grossly non-focal
Psych-calm, cooperative
Left parapneumonic effusion versus empyema -due to complicated community-acquired pneumonia. Continue IV Unasyn.
Chest ultrasound 06/19 reviewed, not enough fluid for thoracentesis.
Chest x-ray done 06/21/shows moderate left-sided loculated pleural effusion, left lower lobe pneumonia.
Thoracentesis done 06/21 yielded 150 cc clear yellow pleural fluid. Fluid is exudative in nature, pH 6.92.
Chest tube placed 06/22 by IR, pleural lysis performed with administration of intrathoracic alteplase and dornase.
Chest x-ray shows continued interval improvement in left basilar loculated pleural effusion. Small residual pocket of fluid projecting from the left midlung noted.
Chest tube output 25 cc in past 24 hours.
Chest tube management per IR/pulmonary. Can pull chest tube when okay with pulmonary service.
CT chest ordered for today.
Community-acquired pneumonia -clinically improving with downtrending of WBC count. Fevers resolved. Continue IV Unasyn. Leukocytosis improved.
Strep and Legionella negative
Sputum culture usual respiratory raul.
Blood cultures negative so far.
Hyponatremia -133, monitor for now.
Mild hypercalcemia - improved to 9.9. Intact PTH 34.7.
TSH 0.67, 25-hydroxyvitamin D 31.
1,25-dihydroxyvitamin D level normal, PTH-RP level pending.
Polyuria -suspect related to excessive fluid intake as well as presumed BPH.
No retention on bladder ultrasound today. Continue Flomax. Recommend outpatient urology follow-up. Cut down on fluids.
DVT proph: Lovenox
Code Status: Full Code
Anticipated Discharge: Within 24 hours
Subjective/Interval History
-
Date of Service: June 26, 2025
Patient seen and examined. No complaints.
Objective Data
-
Vital Signs:
Vital Signs
Temp Pulse Resp BP Pulse Ox
98.7 F 85 18 151/84 97
06/26/25 07:05 06/26/25 07:05 06/26/25 07:05 06/26/25 07:05 06/26/25 10:15
I&O
06/25/25 06/26/25 06/27/25
06:59 06:59 06:59
Intake Total 1440 / 1440 480 / 480
Output Total 1715 / 1715 1300 / 1300
Balance -275 / -275 -820 / -820 -25 / -25
Review of Systems
-
History Source: Patient
All other systems: Reviewed and negative
--- NOTE | 2025-06-26 14:11 | W.PN.PUL3 ---
Today's Communication / Plan
-
Chest tube removal today
Thoracentesis tomorrow for left lower lobe posterior/paramediastinal likely fluid collection
Okay for patient to get up OOB and walk around the unit as tolerated
Continue antibiotics (unasyn)
Outpatient pulmonary follow-up
Assessment
-
Patient is a 80-year-old male with no significant past medical history presenting with left sided chest pain. Patient described the pain as a dull ache from the lower ribs down his left side. He reports pain is worsened lying down. He reports
lying down triggers increases cough. He notes sharp pain with cough and deep inspiration. He denies shortness of breath. He reports low grade temp of 99.9F this morning.
Several weeks prior, he noted similar complaints on the right-hand side. Denies any prior known history of lung disease, lifelong non-smoker. Denies family history of lung disease. Underwent CT demonstrating loculated pleural effusion on the left,
he is started on IV antibiotics for presumed pneumonia. We are consulted for evaluation.
Left-sided loculated effusion due to empyema
Status post thoracentesis 06/21/25--150 mL, exudate, pH 6.9, WBCs-cultures No growth.
s/p chest tube inserted 06/22/25
Chronic cough
Left side pleurisy
Low-grade temp
Leukocytosis, rising
Possible UTI, UA with 2+ blood/30-40wbc,many bacteria
Conditions present prior to admission:
No past history
Plan
Respiratory status slowly improving-lifelong nonsmoker, and no previous lung disease
Supplemental oxygen as needed-currently on room air.
Incentive spirometry encouraged
Loculated pleural njkilvui-sgkvazjwyp-stqtvzzbc not enough fluid to tap-subsequently pleural fluid increased in size and thoracentesis and eventual chest tube was performed (on 06/22)
Cultures reviewed
Blood cultures negative
Urine cultures negative
Sputum culture-usual respiratory raul.
Left pleural fluid-no growth
MRSA screen negative.
Urine Legionella and streptococcal pneumonia antigen negative
Empiric antibiotics-finite course-currently on unasyn s/p ceftriaxone and doxycycline.
Chest x-ray 06/21/25 with moderate left pleural effusion.
Thoracentesis left side 06/21/25-exudate, pH 6.9, WBCs, cultures negative, cytology pending-suspect complicated parapneumonic effusion or empyema., cytology pending
CT chest 06/22/25-moderate loculated pleural effusion, enlarged, moderate left lower lobe consolidation, stable 5 mm right lower lobe pleural-based nodule
Chest tube placement 06/22/25 With pleural lysis-TPA and dornase
Chest x-ray 06/23/25- interval insertion of left basilar chest tube with significant interval improvement of loculated left pleural effusion..
Chest x-ray 06/24/2025-improved left pleural effusion with residual small left pleural effusion
Monitor chest tube output
Interventional radiology contacted-is there a role for chest tube manipulation, additional tPA/DNase or just remove chest tube with minimal fluid left
- Check CT chest to assess LLL empyema - -> obtained today showing small residual loculated paramediastinal fluid collection, and a minimal amount of residual pleural fluid at the catheter locking loop. Also 2 small pockets of fluid loculated
along the left oblique fissure. Imaging was discussed with IR and we have agreed to remove the chest tube given that the fluid located at the chest tube tip has almost fully resolved. Decision made to perform thoracentesis tomorrow to remove the
remainder of the left lower lobe posterior/paramediastinal fluid
- IR to come to bedside today to remove chest tube
- Repeat CXR tomorrow
- Ok for pt to get up OOB and walk around unit
Echocardiogram 06/20/2025-EF 62%, mild aortic regurgitation, PA systolic 37.
DVT prophylaxis-on Lovenox
Will arrange outpatient pulmonary evaluation in our office for PFTs and 6MWT
Pulmonary service will continue to follow
Diagnostic Data
CT Scan: CHEST 06/17/2025. Small to moderate partially loculated left pleural effusion with associated confluent pleural-based left lower lobe consolidation, likely rounded atelectasis with or without a superimposed component of pneumonia.
2. Small 5 mm right lower lobe pulmonary nodule, likely benign. If the patient is considered high risk, an optional follow-up noncontrast CT chest can be obtained in 12 months. The [facility] Pulmonary Nodule Advisory Board will be notified.
3. Probable right-sided hydrocele, partially visualized.
CT chest 06/26/2025:
1. Interval significant decrease of left pleural fluid as above. There are small residual loculated collections as described.
2. Unchanged right lower lobe 5 mm nodule.
3. Unchanged or slightly decreased small pericardial effusion.
.
Total time spent today was 41 minutes for this encounter. Time includes reviewing laboratory test/imaging results, reviewing pertinent medical records, obtaining and reviewing medical history, performing an appropriate exam, ordering medications,
tests and procedures. Time also includes documentation of this encounter, coordinating patient care and communicating with other healthcare professionals. Total time does not include separately billed tests performed on this date of service.
Subjective Data
-
Date of Service:
Date of Service: June 26, 2025
Chief Complaint: Pulmonary Follow Up and Dyspnea Follow Up
Subjective:
Patient seen and evaluated today at bedside. Afebrile overnight. Denies chest pain, SOB, NICOLE, nausea, fevers or chills.
Review of Systems
General: Other (Negative unless mentioned above)
Objective Data
Data Reviewed
Vital Signs / I&O / Oxygen:
Vital Signs
Temp Pulse Resp BP Pulse Ox
98.7 F 85 18 151/84 97
06/26/25 07:05 06/26/25 07:05 06/26/25 07:05 06/26/25 07:05 06/26/25 10:15
Intake and Output
06/25/25 06/26/25 06/27/25
06:59 06:59 06:59
Intake Total 1440 / 1440 480 / 480
Output Total 1715 / 1715 1300 / 1300 25 / 25
Balance -275 / -275 -820 / -820 -
SaO2 97
Physical Exam
General: Respiratory Distress (n), Comfortable and Other (NAD)
HEENT: Normocephalic, Anicteric and Moist Mucous Membranes
Cardiovascular: Regular Rhythm
Respiratory: Clear, Wheeze (n), Crackles (n), Rhonchi (n), Non-Labored Respirations, Accessory Resp Muscle Use (n), Stridor (n), Chest Tube (Left hemithorax currently on -20 cmH2O with no airleak) and Other (Diminished breath sounds at left base)
GI: Soft, Non Distended and Non Tender
Neurology: Awake, Alert, Oriented and Tremors (n)
Skin: Warm, Dry, Cyanosis (n), Jaundice (n) and Rash (n)
Labs/Micro/Reports
Lab Data
06/23/25 05:16
06/24/25 05:31
Microbiology
06/19/25 13:38 Blood/Venous Blood Culture - Final
No Growth - Final Report
06/19/25 12:37 Blood/Venous Blood Culture - Final
No Growth - Final Report
06/21/25 14:58 Pleural Fluid Body Fluid Culture - Final
No Growth After 72 Hours
06/21/25 14:58 Pleural Fluid Gram Stain - Final
[2025-06-26 15:01] VITALS: BP 136/65
--- NOTE | 2025-06-26 15:22 | PN.IRAD.UPD ---
Update Note - IRAD
- -
WENT BEDSIDE AT 1515 TO PULL PATIENT'S LEFT SIDED CHEST TUBE. CLEANED, PREPPED AND DRAPED THE SITE, REMOVED WITH NO COMPLAINTS. DRESSED WITH PRIMAPORE AND NURSE AWARE. AP
--- NOTE | 2025-06-26 15:29 | PTCARENOTE ---
IR called in this afternoon and is at bedside around 1520 this shift to remove chest tube post review of chest CT and chest x-ray done today. Chest tube removed with clean, dry, dressing intact over site. Pt tolerated well. Plan of care ongoing.
[2025-06-26] MEDS: LOVENOX 40 MG SC (17:39)
[2025-06-26] MEDS: COLACE PO (22:28)
[2025-06-26 23:08] VITALS: BP 130/59
[2025-06-27] MEDS: UNASYN IV ×4 (00:26→15:21)
[2025-06-27 06:00] VITALS: BMI 21.3
[2025-06-27 07:45] LABS: ALT (SGPT) 64 U/L (0-50); AST (SGOT) 37 U/L (17-59); Albumin 2.8 g/dl (3.5-5.0); Alkaline Phosphatase 91 U/L (38-126); Blood Urea Nitrogen 20 mg/dl (9-20); Calcium 10.0 mg/dl (8.4-10.2); Carbon Dioxide 23 mmol/L (22-30); Chloride 104 mmol/L (98-107); Estimated Creatinine Clearance 83 ml/min; Glucose 99 mg/dl (70-99); Potassium 4.9 mmol/L (3.5-5.1); Sodium 132 mmol/L (135-145); Total Protein 5.8 g/dl (6.3-8.2); eGFR > 60.00
[2025-06-27 07:54] VITALS: BP 142/69
[2025-06-27 08:16] LABS: Hematocrit 36.9 % (39.0-52.0); Hemoglobin 11.9 g/dL (13.0-18.0); Mean Corp Hgb Conc. 32.2 g/dL (33.0-37.0); Mean Corpuscular Volume 90.9 fL (80.0-94.0); Nucleated Red Blood Cells % 0 % (-); Platelet Count 540 10^3/uL (130-400); Red Cell Dist. Width 13.2 % (11.5-14.5)
[2025-06-27] MEDS: COLACE 100 MG PO (08:46)
[2025-06-27] MEDS: MIRALAX 17 GRAMS PO (08:46)
[2025-06-27] MEDS: FLOMAX 0.4 MG PO (08:46)
--- NOTE | 2025-06-27 09:04 | W.PN.HOSP.TC ---
Today's Communication/Plan
-
Thoracentesis today. ID evaluation.
Assessment / Plan
Assessment / Plan
Gen-AAOx3, NAD
HEENT-NC, AT, anicteric, clear oral mm
Neck-supple
CV-reg, no M, +S1/S2
Lungs-clear B/L, left-sided chest tube in place
Abd-soft, NT, ND
Ext-no edema
Musculoskeletal-no cyanosis, clubbing
Skin-warm and dry
Neuro-grossly non-focal
Psych-calm, cooperative
A/P:
Left parapneumonic effusion versus empyema -due to complicated community-acquired pneumonia. Continue IV Unasyn. Plan for left thoracentesis today (ordered infectious and malignancy workup)-discussed with IR. ID consult for choice of antibiotics
and duration. Discharge planning either later today or tomorrow depending on ID recommendations and post-thoracentesis course.
Prior to today:
Chest ultrasound 06/19 reviewed, not enough fluid for thoracentesis.
Chest x-ray done 06/21/shows moderate left-sided loculated pleural effusion, left lower lobe pneumonia.
Thoracentesis done 06/21 yielded 150 cc clear yellow pleural fluid. Fluid is exudative in nature, pH 6.92.
Chest tube placed 06/22 by IR, pleural lysis performed with administration of intrathoracic alteplase and dornase.
Chest x-ray shows continued interval improvement in left basilar loculated pleural effusion. Small residual pocket of fluid projecting from the left midlung noted.
Chest tube output 25 cc in past 24 hours.
Chest tube management per IR/pulmonary. Can pull chest tube when okay with pulmonary service.
CT chest ordered for today.
Community-acquired pneumonia -clinically improving with downtrending of WBC count. Fevers resolved. Continue IV Unasyn. Leukocytosis improved.
Strep and Legionella negative
Sputum culture usual respiratory raul.
Blood cultures negative so far.
Hyponatremia -132, monitor for now.
Mild hypercalcemia - improved to 10 today but corrected about 10.6-11. Needs close follow-up as outpatient.
Intact PTH 34.7.
TSH 0.67, 25-hydroxyvitamin D 31.
1,25-dihydroxyvitamin D level normal, PTH-RP level pending.
Polyuria -suspect related to excessive fluid intake as well as presumed BPH. Will arrange outpatient referral with Dr. Jd Knox on-call urologist (sent message).
No retention on bladder ultrasound today. Continue Flomax. Recommend outpatient urology follow-up. Cut down on fluids.
DVT proph: Lovenox
Code Status: Full Code
Anticipated Discharge: Within 24 hours
Subjective/Interval History
-
Date of Service: June 27, 2025
Patient feels better overall. Afebrile today.
Objective Data
-
Labs:
Laboratory Results
06/27/25
06:28
WBC 9.3
Hgb 11.9 L
Hct 36.9 L
Plt Count 540 H D
Sodium 132 L
Potassium 4.9
Chloride 104
Carbon Dioxide 23
BUN 20
Creatinine 0.8
Glucose 99
Calcium 10.0
Total Bilirubin 0.3
AST 37
ALT 64 H
Alkaline Phosphatase 91
Vital Signs:
Vital Signs
Temp Pulse Resp BP Pulse Ox
97.7 F 68 16 142/69 97
06/27/25 07:54 06/27/25 07:54 06/27/25 07:54 06/27/25 07:54 06/27/25 07:54
I&O
06/26/25 06/27/25 06/28/25
06:59 06:59 06:59
Intake Total 480 / 480 1380 / 1380
Output Total 1300 / 1300 775 / 775
Balance -820 / -820 605 / 605
--- NOTE | 2025-06-27 09:16 | W.PN.PUL3 ---
Today's Communication / Plan
-
Chest tube removed, thora today wtih improved pleural study numbers
Complete abx per ID
Ok for d/c planning per team
OP FU recommended, he may pursue [facility]
Assessment
-
Patient is a 80-year-old male with no significant past medical history presenting with left sided chest pain. Patient described the pain as a dull ache from the lower ribs down his left side. He reports pain is worsened lying down. He reports
lying down triggers increases cough. He notes sharp pain with cough and deep inspiration. He denies shortness of breath. He reports low grade temp of 99.9F this morning.
Several weeks prior, he noted similar complaints on the right-hand side. Denies any prior known history of lung disease, lifelong non-smoker. Denies family history of lung disease. Underwent CT demonstrating loculated pleural effusion on the left,
he is started on IV antibiotics for presumed pneumonia. We are consulted for evaluation.
Left-sided loculated effusion due to empyema
Status post thoracentesis 06/21/25--150 mL, exudate, pH 6.9, WBCs-cultures No growth.
s/p chest tube inserted 06/22/25
s/p thora 06/27
Chronic cough
Left side pleurisy
Low-grade temp
Leukocytosis, rising
Possible UTI, UA with 2+ blood/30-40wbc,many bacteria
Conditions present prior to admission:
No past history
Plan
Respiratory status slowly improving-lifelong nonsmoker, and no previous lung disease
Supplemental oxygen as needed-currently on room air.
Incentive spirometry encouraged
Loculated pleural wahmldoc-qxujtepcxn-tqrntzjch not enough fluid to tap-subsequently pleural fluid increased in size and thoracentesis and eventual chest tube was performed (on 06/22)
Cultures reviewed
Blood cultures negative
Urine cultures negative
Sputum culture-usual respiratory raul.
Left pleural fluid-no growth
MRSA screen negative.
Urine Legionella and streptococcal pneumonia antigen negative
Empiric antibiotics-finite course-currently on unasyn s/p ceftriaxone and doxycycline.
Chest x-ray 06/21/25 with moderate left pleural effusion.
Thoracentesis left side 06/21/25-exudate, pH 6.9, WBCs, cultures negative, cytology pending-suspect complicated parapneumonic effusion or empyema., cytology pending
CT chest 06/22/25-moderate loculated pleural effusion, enlarged, moderate left lower lobe consolidation, stable 5 mm right lower lobe pleural-based nodule
Chest tube placement 06/22/25 With pleural lysis-TPA and dornase
Chest x-ray 06/23/25- interval insertion of left basilar chest tube with significant interval improvement of loculated left pleural effusion..
Chest x-ray 06/24/2025-improved left pleural effusion with residual small left pleural effusion
Monitor chest tube output
Interventional radiology contacted-is there a role for chest tube manipulation, additional tPA/DNase or just remove chest tube with minimal fluid left
Check CT chest to assess LLL empyema - -> obtained today showing small residual loculated paramediastinal fluid collection, and a minimal amount of residual pleural fluid at the catheter locking loop. Also 2 small pockets of fluid loculated along
the left oblique fissure.
Chest tube removed
Therapeutic thora 06/27-body fluid studies are improving, pleural pH 6.9 -> 7.5
Echocardiogram 06/20/2025-EF 62%, mild aortic regurgitation, PA systolic 37.
DVT prophylaxis-on Lovenox
Will arrange outpatient pulmonary evaluation in our office for PFTs and 6MWT
Pulmonary service will continue to follow
Diagnostic Data
CT Scan: CHEST 06/17/2025. Small to moderate partially loculated left pleural effusion with associated confluent pleural-based left lower lobe consolidation, likely rounded atelectasis with or without a superimposed component of pneumonia.
2. Small 5 mm right lower lobe pulmonary nodule, likely benign. If the patient is considered high risk, an optional follow-up noncontrast CT chest can be obtained in 12 months. The [facility] Pulmonary Nodule Advisory Board will be notified.
3. Probable right-sided hydrocele, partially visualized.
CT chest 06/26/2025:
1. Interval significant decrease of left pleural fluid as above. There are small residual loculated collections as described.
2. Unchanged right lower lobe 5 mm nodule.
3. Unchanged or slightly decreased small pericardial effusion.
Total time spent today was 41 minutes for this encounter. Time includes reviewing laboratory test/imaging results, reviewing pertinent medical records, obtaining and reviewing medical history, performing an appropriate exam, ordering medications,
tests and procedures. Time also includes documentation of this encounter, coordinating patient care and communicating with other healthcare professionals. Total time does not include separately billed tests performed on this date of service.
Subjective Data
-
Date of Service:
Date of Service: June 27, 2025
Chief Complaint: Pulmonary Follow Up and Dyspnea Follow Up
Subjective:
Doing well post tap, stable on RA
Wants to go home
Objective Data
Data Reviewed
Vital Signs / I&O / Oxygen:
Vital Signs
Temp Pulse Resp BP Pulse Ox
97.7 F 68 16 142/69 97
06/27/25 07:54 06/27/25 07:54 06/27/25 07:54 06/27/25 07:54 06/27/25 07:54
Intake and Output
06/26/25 06/27/25 06/28/25
06:59 06:59 06:59
Intake Total 480 / 480 1380 / 1380
Output Total 1300 / 1300 775 / 775
Balance -820 / -820 605 / 605
SaO2 97
Physical Exam
General: Respiratory Distress (n), Comfortable and Other (NAD)
HEENT: Normocephalic, Anicteric and Moist Mucous Membranes
Cardiovascular: Regular Rhythm
Respiratory: Clear, Wheeze (n), Crackles (n), Rhonchi (n), Non-Labored Respirations, Accessory Resp Muscle Use (n), Stridor (n) and Other (Diminished breath sounds at left base)
GI: Soft, Non Distended and Non Tender
Neurology: Awake, Alert, Oriented and Tremors (n)
Skin: Warm, Dry, Cyanosis (n), Jaundice (n) and Rash (n)
Labs/Micro/Reports
Lab Data
06/27/25 06:28
06/27/25 06:28
Microbiology
06/19/25 13:38 Blood/Venous Blood Culture - Final
No Growth - Final Report
06/19/25 12:37 Blood/Venous Blood Culture - Final
No Growth - Final Report
06/21/25 14:58 Pleural Fluid Body Fluid Culture - Final
No Growth After 72 Hours
06/21/25 14:58 Pleural Fluid Gram Stain - Final
--- NOTE | 2025-06-27 11:18 | CON.ID ---
Consultation
-
Date/Time Consultation Requested: 06/27/25 10:20
Date/Time Consultation Performed: 06/27/25 11:18
Requesting Provider: Dr Umana
Performing Provider: Dr Martin
Reason for Consultation: Empyema-antibiotic of choice
Chief Complaint / Past History
Chief Complaint
L sided chest pain
History of Present Illness
Mr Christensen is a 80 year old male without significant past medical history who presented here 06/18, 9 days ago, for L sided chest pain - a dull aches from the left, lower ribs, worse with recumbence, also with increasing cough when lying flat. Pain
is sharp, wore with deep inspiration. Reports Tmax was 99.9. No shortnes of breath. No history of lung disease, nonsmoker.
He was initially afebrile but had fevers to tmax 100.7 on HD2 and 3, he has now been afebrile for days, initially tachypneic now resolved, wbc initially 21 with steady decrease until today when it resolved at 9.3, hgb 13, thrombocytosis has
persisted in the 400-500 range, L shift resolved yesterday, Cr 0.8 on arrival and stable, 06/21 thoracentesis 150 ccs of clear yellow pleural fluid consistent with empyema with pH 69, PMN predoninent, low glucose, high LDH, 06/17 CT c/a/p with IV
contrast: small moderate partially loculated L pleural effusion with LLL consolidation, 5 mm pulmonary nodule, 06/19 chest US: moderate loculated L pleural effusion, 06/22 chest tube placed and pleural lysis begun, 06/26 L chest tube in place, small
residual loculated effusion, large dense airspace consolidation in the L base, 06/21 body fluid culture no growth finalized, 06/26 CT chest without contrast: interval significant decrease of L pleural fluid, small residual loculate collections along
L major fissure, paramediastinal fluid, and posterior L base, 06/19 blood cultures x2 no growth finalized, pathology: marked inflammation, course notable for 06/24 pleural lysis had chest tube removal and there is a plan for repeat thoracentesis
today. He was on doxycycline and ceftriaxone 06/17-06/19 then switched to unasyn 06/20 which has continued until today, ,ID is asked to comment on antibiotic selection given negative cultures.
Past History
Additional Past Medical History:
Peripheral Neuropathy
Additional Past Surgical History:
Left Great Toe Amputation
Left Thumb and Right Ring Finger Tendon Repair
Tonsillectomy
Cataracts
Allergy History:
No Known Allergies Allergy (Verified 06/17/25 16:12)
Medications Reviewed: Yes
Social History
Tobacco: Non-Smoker
Alcohol: None
Drug: None
Family History
Family History: Not Pertinent
Review of Systems
Review of Systems
A 12 point ROS was completed and negative except as noted: Yes
Constitutional: Denies Fever or Chills
Respiratory: Reports Cough and Trouble Breathing (Related to inability to take a deep breath)
Cardiac: Denies Palpitations
Abdomen/GI: Denies Abdominal Pain, Nausea, Vomiting, Diarrhea or Constipated
Vital Signs
Temp Pulse Resp BP Pulse Ox
97.7 F 68 16 142/69 97
06/27/25 07:54 06/27/25 07:54 06/27/25 07:54 06/27/25 07:54 06/27/25 07:54
Physical Exam
Physical Exam
Constitutional: No Acute Distress
Cardiovascular: Regular Rate and S1/S2; Negative Murmur or Rub
Pulmonary: Clear and Symmetric; Negative Wheezes, Rales or Rhonchi
Gastrointestinal: Soft, Non Tender, Non Distended and Normal Bowel Sounds
Skin: Warm and Dry; Negative Rash or Jaundice
Lab / Diagnostic Study Results
06/27/25 06:28
06/27/25 06:28
Abs Immat Gran (auto) 0.1 10^3/uL (0-0.05) H 06/27/25 06:28
Absolute Neuts (auto) 6.2 10^3/uL (1.4-6.5) 06/27/25 06:28
Absolute Lymphs (auto) 1.8 10^3/uL (1.2-3.4) 06/27/25 06:28
Absolute Monos (auto) 0.8 10^3/uL (0.1-0.6) H 06/27/25 06:28
Absolute Basos (auto) 0.1 10^3/uL (0-0.2) 06/27/25 06:28
Immature Gran % 0.9 % (0-0.5) H 06/27/25 06:28
Neutrophils % 66.8 % (42.2-75.2) 06/27/25 06:28
Lymphocytes % 19.7 % (20.5-51.1) L 06/27/25 06:28
Monocytes % 8.8 % (1.7-9.3) 06/27/25 06:28
Eosinophils % 2.5 % (0-6) 06/27/25 06:28
Basophils % 1.3 % (0-2) 06/27/25 06:28
Ur Squamous Epith Cells 16-20 /LPF (Few) 06/18/25 20:22
Microbiology Results
Micro:
06/19/25 13:38 Blood Culture - Final
Blood/Venous No Growth - Final Report
06/19/25 12:37 Blood Culture - Final
Blood/Venous No Growth - Final Report
06/21/25 14:58 Body Fluid Culture - Final
Pleural Fluid No Growth After 72 Hours
Gram Stain - Final
06/18/25 20:22 Respiratory Culture - Final
Sputum Usual Respiratory Jami
Gram Stain - Final
06/18/25 20:22 Urine Culture - Final
Urine NO GROWTH
06/18/25 20:22 MRSA Screen - Final
Nose No Methicillin Resistant Staphylococcus aureus isolated.
06/18/25 20:22 Legionella Urinary Antigen - Final
Urine Negative for Legionella pneumophila Serogroup 1 antigen.
A negative result does not rule out the possiblity of
Legionella infection due to other serogroups or species of
Legionella. Clinical correlation is recommended.
Streptococcus pneumoniae Antigen (M - Final
Negative for Streptococcus pneumoniae antigen.
A negative result does not exclude infection with
Streptococcus pneumoniae. Clinical correlation is
recommended.
Laboratory Tests
06/21/25
14:58
Fluid pH 6.92
Fluid WBC 2935
Fluid Mononuclear Cell 6.4
Fl Polymorphonucl Cell 93.6
Fluid Glucose 34
Fluid Total Protein 4.5
Fluid LDH 1815
Assessment / Plan
L sided empyema s/p chest tube drainage
CAP
fever - resolved
Leukocytosis - resolved
Thrombocytosis
- 06/21 body fluid culture negative - obtained after 4 days of antibiotics
- 06/18 sputum culture negative
- blood cultures x2 no growth to date
- there is some residual loculated fluid noted on the last CT chest, maximizing drainage with repeat thoracentesis today - 50 ccs aspirated
- note improved pH, cell count could not be done, glucose remains low; additional pleural fluid was sent for culture - will follow up
- continue Unasyn while inpatient day ; on discharge can switch to augmentin 875/125 mg po bid
- follow up with PCP
[2025-06-27 11:50] VITALS: BP 129/72; BP_SYST 75
[2025-06-27 12:12] VITALS: BP 116/60; BP_SYST 58
--- NOTE | 2025-06-27 12:53 | CM ---
Patient seen at bedside
thoracentesis today
cxr
declines VN
IMM explained & signed - in chart
PLAN: Home, no needs when stable
to transport
[2025-06-27 14:20] LABS: Body Fluid Granulocytes 75 %
--- NOTE | 2025-06-27 14:46 | PTCARENOTE ---
Unasyn dose noted to be leaking and infiltrating from IV. Turned off early. Patient upset about missed dosage. Spoke with pharmacist and hospitalist - agreeable to ordering 1.5g dose to replace. Warm compress applied to infiltrate.
[2025-06-27 15:45] VITALS: BP 120/61
--- NOTE | 2025-06-27 16:28 | W.DCSUMMARY ---
Discharge Summary
Discharge Data
Date of Admission: 06/17/25
Date of Discharge: 06/27/25
Total time spent discharging patient (in min): 35
-
Pending Results: No
Hospital Course
Patient is 80 years old male with no significant past medical history came into the hospital with fever and pleuritic chest discomfort and found to have pneumonia and left loculated pleural effusion. Patient was treated with IV antibiotics.
Pulmonary and ID were consulted. He had a chest tube placed on 06/22 status post lysis and body fluid culture did not grow any bacteria. Blood cultures remain sterile as well. He had chest tube removal on 06/24 and he had a repeat thoracentesis
on 06/27. Results of latest thoracentesis pending but preliminary results are favorable. ID recommended to switch to oral antibiotics to complete a 28 days course including inpatient antibiotic therapy. Patient is hemodynamically stable and
afebrile and leukocytosis resolved, and he is very eager to go home today.
Discharge duration: 35 minutes
Discharge Plan
-
Patient Disposition: Home (Routine Discharge)
Discharge Diagnosis/Procedures: Left empyema. Community-acquired pneumonia.
Diet: Regular
Activity: As tolerated
Blood Work: Please PCP to order CBC, BMP within 1 week
Activity Restrictions/Additional Instructions:
Please call the urology office to follow-up regarding frequent urination.
[phone].
Referrals:
Jd Knox MD [Active, Urology] - in one to two months
Referral Note: BPH eval
Anusha Barakat DO [Active, Pulmonary Medicine] - in two to three weeks
Referral Note: PFTs
Hipolito Oneal PA-C [Family Provider] - in less than 1 week
Prescriptions:
New
acetaminophen 325 mg Tablet
650 mg PO Q4HPRN PRN (Reason: mild pain/ fever>100.5F) Qty: 20 0RF
tamsulosin 0.4 mg Capsule
0.4 mg PO DAILY Qty: 30 0RF
benzonatate 100 mg Capsule
200 mg PO TIDPRN PRN (Reason: cough) Qty: 30 0RF
amoxicillin-pot clavulanate 875-125 mg Tablet
1 tab PO Q12 17 Days Qty: 34 0RF
Discharge Orders:
Discharge Patient (As Directed); Ordered 06/27/25
Ordered By: Jasiel Umana
Discharge Date and Time
Discharge Date/Time: 06/27/25 18:09
Print Language: UPPER SORBIAN
[2025-06-29 00:03] LABS: PTH Related Peptide LC-MS/MS <2.0 pmol/L (0.0-2.3)
== END 2025-06-27 18:09 | disposition home or self-care (01) | DRG 186 ==
LOC: 3 WEST ACU 20:29
PROVIDERS: Hospitalist; Nurse Practitioner Gerontology; Physician Assistant Medical; Radiology Diagnostic Radiology; Radiology Vascular & Interventional Radiology; Registered Nurse; ADMITTING PHYSICIAN Internal Medicine; ATTENDING PHYSICIAN Hospitalist; CONSULT PHYSICIAN Internal Medicine; EMERGENCY PHYSICIAN Emergency Medicine; FAMILY PHYSICIAN Physician Assistant Medical; OTHER PHYSICIAN Student in an Organized Health Care Education/Training Program
PROC: 0W9B3ZZ Drainage of Left Pleural Cavity, Percutaneous Approach (ICD-10-PCS; 2025-06-21)
PROC: 3E0L317 Introduction of Other Thrombolytic into Pleural Cavity, Percutaneous Approach (ICD-10-PCS; 2025-06-24)
DX: J90 Pleural effusion, not elsewhere classified (principal); J18.9 Pneumonia, unspecified organism; J86.9 Pyothorax without fistula; N39.0 Urinary tract infection, site not specified; E87.1 Hypo-osmolality and hyponatremia
CPT/HCPCS: 32555; 32557; 32561; 71045; 71046; 71250; 71260; 74177; 76604; 80048; 80053; 81003; 81015; 82306; 82652; 82945; 83519; 83615; 83880; 83970; 83986; 84155; 84157; 84443; 84484; 85025; 85027; 87015; 87040; 87070; 87086; 87205; 87449; 87899; 88112; 88305; 89051; 93005; 93306; 96374; 99285; C1729; C1769; J2997; Q9967